=== PATIENT | male | born 1955 | race Caucasian/White ===

== ENCOUNTER 2016-07-07 09:28 | Inpatient (IN) | payer OTHER ==
[2016-07-04 14:30] VITALS: BMI 24.3
[2016-07-07 10:10] LABS: INR 1.35 (0.82-1.09); PROTHROMBIN TIME (PATIENT) 14.9 SEC (9.98-11.88)
[2016-07-07] MEDS ORDERED: ACETAMINOPHEN 325 MG TABLET (FP) ONE (15:27)
[2016-07-07] MEDS ORDERED: oxyCODONE HCL 5 MG TABLET ONE (15:27)
[2016-07-07] MEDS ORDERED: VANCOMYCIN 1,000 MG in DEXTROSE 5%-WATER - 250 ML IVPB SCH (16:00)
[2016-07-07] MEDS ORDERED: AMPICILLIN NA/SULBACTAM NA 100 ML IVPB ONE (16:15)
[2016-07-07] MEDS ORDERED: VANCOMYCIN 1 GRAM (PRE-DOCKED) 250 ML IVPB ONE (16:30)
[2016-07-07] MEDS: morphine CARPU-JECT 4 MG/1 ML DISP.SYRIN IVPUSH PRN (17:12)
[2016-07-07 17:19] LABS: BASOPHIL 0.5 % (0-2.0); EOSINOPHIL 0.4 % (0-4.5); MCHC 34.1 g/dl (32.0-35.9); MEAN PLT VOLUME 7.6 fl (7.5-11.1); NEUTROPHILS 60.7 % (42.8-82.8); PLATELET COUNT 259 K/MM3 (134-434); RDW 13.1 % (11.9-15.9); WHITE BLOOD COUNT 6.2 K/mm3 (4.0-10.0)
[2016-07-07 17:46] LABS: ALBUMIN 2.5 g/dl (3.4-5.0); ALK PHOS 134 U/L (45-117); ANION GAP 7 (8-16); BILIRUBIN,TOTAL 0.5 mg/dL (0.2-1.0); CALCIUM 7.7 mg/dL (8.5-10.1); CO2 26 mmol/L (21-32); CREATININE 1.1 mg/dL (0.7-1.3); GLUCOSE,RANDOM 112 mg/dL (74-106); SGOT/AST 15 U/L (15-37); SGPT/ALT 18 U/L (12-78)
--- NOTE | 2016-07-07 18:14 | CONSULT ---
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 the patient feels good and has mostly bloody drainage noted no drugs lives with family - History Source History Provided By: Patient, Family Member, Medical Record Limitations to Obtaining History: Poor Historian - Past Medical History Cardio/Vascular: Yes: CAD (s/p PCI 2 years ago), HTN, Hyperlipdemia Pulmonary: Yes: COPD - Alcohol/Substance Use Hx Alcohol Use: Yes (OCCASIONAL) - Smoking History Smoking history: Current every day smoker Have you smoked in the past 12 months: Yes Aproximately how many cigarettes per day: 6 - Social History Usual Living Arrangement: With Spouse ADL: Independent History of Recent Travel: No Home Medications - Allergies Allergies/Adverse Reactions: Allergies Allergy/AdvReac Type Severity Reaction Status Date / Time No Known Allergies Allergy Verified 07/04/16 14:30 - Home Medications Home Medications: Ambulatory Orders Acetaminophen [Tylenol .Regular Strength -] 650 mg PO Q4H PRN #0 tablet Aspirin [ASA -] 81 mg PO HS #0 09/14/15 Atorvastatin Ca [Lipitor] 40 mg PO HS #0 09/14/15 Clopidogrel Bisulfate [Plavix -] 75 mg PO HS #0 09/14/15 Olmesartan/Hydrochlorothiazide [Benicar Hct 20-12.5 mg Tablet] 1 each PO HS #0 09/14/15 Review of Systems - Review of Systems Constitutional: reports: No Symptoms Eyes: reports: No Symptoms HENT: reports: No Symptoms Neck: reports: No Symptoms Cardiovascular: reports: No Symptoms Respiratory: reports: No Symptoms Gastrointestinal: reports: No Symptoms Genitourinary: reports: No Symptoms Musculoskeletal: reports: Back Pain Integumentary: reports: No Symptoms Neurological: reports: No Symptoms Endocrine: reports: No Symptoms Hematology/Lymphatic: reports: No Symptoms Physical Exam Vital Signs: Vital Signs Temperature 97.5 F L 01/23/17 10:29 Pulse Rate 100 H 07/07/16 15:35 Respiratory Rate 18 07/07/16 15:35 Blood Pressure 102/54 07/07/16 15:35 O2 Sat by Pulse Oximetry (%) 97 07/07/16 16:59 Constitutional: Yes: Well Nourished, No Distress, Calm Eyes: Yes: Conjunctiva Clear HENT: Yes: Atraumatic, Normocephalic Neck: Yes: Supple, Trachea Midline Cardiovascular: Yes: Regular Rate and Rhythm Respiratory: Yes: Regular, CTA Bilaterally Gastrointestinal: Yes: Normal Bowel Sounds, Soft Musculoskeletal: Yes: Other Extremities: Yes: WNL Wound/Incision: Yes: Clean/Dry, Other (drainage tube present) Neurological: Yes: Alert, Oriented Labs: CBC, BMP 07/07/16 16:40 07/07/16 16:40 Assessment/Plan retroperitoneal abscess s/p drainage hld htn smoker Problems (1) Retroperitoneal abscess Code(s): K68.19 - OTHER RETROPERITONEAL ABSCESS (2) Hyperlipidemia Code(s): E78.5 - HYPERLIPIDEMIA, UNSPECIFIED (3) Hypertension Code(s): I10 - ESSENTIAL (PRIMARY) HYPERTENSION plan will start patient on abx await for cx and micro report
[2016-07-07] MEDS: DEXTROSE 5%-0.45% SALINE 1,000 ML IV SCH (18:27)
[2016-07-07] MEDS: PIPERACILLIN/TAZOB 3.375 GM 50 ML IVPB SCH (18:56)
[2016-07-07] MEDS ORDERED: AMPICILLIN NA/SULBACTAM NA 3 GM in SODIUM CHLORIDE 100 ML IVPB SCH (21:00)
[2016-07-07] MEDS: ATORVASTATIN CA 40 MG TABLET (FP) PO SCH (21:39)
[2016-07-07] MEDS: CLOPIDOGREL BISULFATE 75 MG TABLET (FP) PO SCH (21:39)
--- NOTE | 2016-07-07 21:39 | HP ---
Admitting History and Physical - Past Medical History Cardiovascular: Yes: CAD (s/p PCI 2 years ago), HTN, Hyperlipdemia Pulmonary: Yes: COPD - Smoking History Smoking history: Current every day smoker Have you smoked in the past 12 months: Yes Aproximately how many cigarettes per day: 6 - Alcohol/Substance Use Hx Alcohol Use: Yes (OCCASIONAL) - Social History ADL: Independent History of Recent Travel: No Home Medications - Allergies Allergies/Adverse Reactions: Allergies Allergy/AdvReac Type Severity Reaction Status Date / Time No Known Allergies Allergy Verified 07/04/16 14:30 - Home Medications Home Medications: Ambulatory Orders Acetaminophen [Tylenol .Regular Strength -] 650 mg PO Q4H PRN #0 tablet Aspirin [ASA -] 81 mg PO HS #0 09/14/15 Atorvastatin Ca [Lipitor] 40 mg PO HS #0 09/14/15 Clopidogrel Bisulfate [Plavix -] 75 mg PO HS #0 09/14/15 Olmesartan/Hydrochlorothiazide [Benicar Hct 20-12.5 mg Tablet] 1 each PO HS #0 09/14/15 Physical Examination Vital Signs: Vital Signs Temperature 98.4 F 07/07/16 16:20 Pulse Rate 89 07/07/16 16:20 Respiratory Rate 20 07/07/16 16:20 Blood Pressure 143/70 07/07/16 16:20 O2 Sat by Pulse Oximetry (%) 97 07/07/16 16:59 Labs: CBC, BMP 07/07/16 16:40 07/07/16 16:40
[2016-07-07] MEDS ORDERED: ASPIRIN 81 MG CHEWABLE TABLETS PO SCH (22:00)
[2016-07-07] MEDS ORDERED: PATIENT'S OWN MEDICATION (NON-FORMULARY) (Olmesartan/Hydrochlorothiazide [Benicar Hct 20-1 PO SCH (22:00)
[2016-07-08] MEDS: morphine CARPU-JECT 4 MG/1 ML DISP.SYRIN IVPUSH PRN ×2 (00:21→06:54)
[2016-07-08] MEDS: PIPERACILLIN/TAZOB 3.375 GM 50 ML IVPB SCH ×3 (02:33→17:47)
[2016-07-08] MEDS ORDERED: VANCOMYCIN 1 GRAM (PRE-DOCKED) 250 ML IVPB SCH (05:00)
[2016-07-08] MEDS: ACETAMINOPHEN 325 MG TABLET (FP) PO PRN ×2 (06:55→14:53)
[2016-07-08] MEDS: HYDROCHLOROTHIAZIDE 12.5 MG CAPSULE (FP) PO SCH (09:35)
[2016-07-08] MEDS: VALSARTAN 160 MG TABLET (UD) PO SCH (09:35)
[2016-07-08] MEDS: VANCOMYCIN 1 GRAM (PRE-DOCKED) 250 ML IVPB SCH (09:35)
[2016-07-08] MEDS: DEXTROSE 5%-0.45% SALINE 1,000 ML IV SCH ×2 (10:56→17:45)
--- NOTE | 2016-07-08 13:13 | PN ---
Progress Note, Physician History of Present Illness: patient had a spike of fever feels slightly weak no other events stable - Current Medication List Current Medications: Active Medications Acetaminophen (Tylenol -) 650 mg PO Q4H PRN PRN Reason: FEVER OR PAIN Last Admin: 07/08/16 06:55 Dose: 650 mg Aspirin (Asa -) 81 mg PO [facility] Last Admin: 07/07/16 21:39 Dose: 81 mg Atorvastatin Calcium (Lipitor -) 40 mg PO [facility] Last Admin: 07/07/16 21:39 Dose: 40 mg Clopidogrel Bisulfate (Plavix -) 75 mg PO HS [facility] Last Admin: 07/07/16 21:39 Dose: 75 mg Hydrochlorothiazide (Hctz -) 12.5 mg PO DAILY [facility] Last Admin: 07/08/16 09:35 Dose: 12.5 mg Dextrose/Sodium Chloride (D5-1/2ns -) 1,000 mls @ 75 mls/hr IV ASDIR [facility] Last Admin: 07/08/16 10:56 Dose: 75 mls/hr Vancomycin HCl (Vancomycin (Pre-Docked)) 250 mls @ 250 mls/hr IVPB DAILY [facility] Last Admin: 07/08/16 09:35 Dose: 250 mls/hr Piperacillin Sod/Tazobactam Sod (Zosyn 3.375gm Ivpb (Pre-Docked)) 50 mls @ 100 mls/hr IVPB Q8H-IV [facility] Last Admin: 07/08/16 09:35 Dose: 100 mls/hr Morphine Sulfate (Morphine Injection -) 4 mg IVPUSH Q4H PRN PRN Reason: PAIN Last Admin: 07/08/16 06:54 Dose: 4 mg Valsartan (Diovan -) 160 mg PO DAILY [facility] Last Admin: 07/08/16 09:35 Dose: 160 mg - Objective Vital Signs: Vital Signs Temperature 99.2 F 07/08/16 10:00 Pulse Rate 89 07/08/16 10:00 Respiratory Rate 18 07/08/16 10:00 Blood Pressure 116/55 07/08/16 10:00 O2 Sat by Pulse Oximetry (%) 97 07/08/16 09:00 Constitutional: Yes: No Distress, Calm Eyes: Yes: Conjunctiva Clear Cardiovascular: Yes: Regular Rate and Rhythm Respiratory: Yes: Regular, CTA Bilaterally Gastrointestinal: Yes: Normal Bowel Sounds, Soft Musculoskeletal: Yes: Other (drainage tube in place) Extremities: Yes: WNL Neurological: Yes: Alert, Oriented Psychiatric: Yes: Alert Labs: CBC, BMP 07/07/16 16:40 07/07/16 16:40 INR, PTT INR 1.35 (0.82-1.09) H 07/07/16 09:36 Assessment/Plan retroperitoneal abscess s/p drainage hld htn smoker Problems (1) Retroperitoneal abscess Code(s): K68.19 - OTHER RETROPERITONEAL ABSCESS (2) Hyperlipidemia Code(s): E78.5 - HYPERLIPIDEMIA, UNSPECIFIED (3) Hypertension Code(s): I10 - ESSENTIAL (PRIMARY) HYPERTENSION plan ct abx await for micro report if the patient spikes fever again pls send blood for cx d/w the nursing staff
[2016-07-08] MEDS: HEPARIN NA (PORCINE) 5,000 UNITS/ML 1ML VIAL SQ SCH (21:22)
[2016-07-08] MEDS: ATORVASTATIN CA 40 MG TABLET (FP) PO SCH (21:22)
[2016-07-08] MEDS: CLOPIDOGREL BISULFATE 75 MG TABLET (FP) PO SCH (21:22)
[2016-07-09] MEDS: PIPERACILLIN/TAZOB 3.375 GM 50 ML IVPB SCH ×2 (02:40→10:10)
[2016-07-09] MEDS: morphine CARPU-JECT 4 MG/1 ML DISP.SYRIN IVPUSH PRN (02:46)
[2016-07-09] MEDS: TAMSULOSIN HCL 0.4 MG CAP.ER.24H (FP) PO SCH (08:14)
[2016-07-09] MEDS ORDERED: TAMSULOSIN HCL 0.4 MG CAP.ER.24H (FP) PO SCH (08:30)
[2016-07-09 08:39] LABS: BASOPHIL 0.5 % (0-2.0); EOSINOPHIL 0.6 % (0-4.5); MCH 29.5 pg (25.7-33.7); MCHC 34.6 g/dl (32.0-35.9); MEAN CELL VOLUME 85.2 fl (80-96); MEAN PLT VOLUME 7.7 fl (7.5-11.1); NEUTROPHILS 66.5 % (42.8-82.8); PLATELET COUNT 213 K/MM3 (134-434); RDW 13.1 % (11.9-15.9); WHITE BLOOD COUNT 7.6 K/mm3 (4.0-10.0)
[2016-07-09 10:04] LABS: ALBUMIN 2.5 g/dl (3.4-5.0); BILIRUBIN,TOTAL 0.7 mg/dL (0.2-1.0); CALCIUM 8.3 mg/dL (8.5-10.1); CREATININE 1.3 mg/dL (0.7-1.3); TOT PROT 6.2 g/dl (6.4-8.2)
--- NOTE | 2016-07-09 10:04 | CONSULT ---
Consult Consult Specialty:: Surgery Referred by:: Dr. Castañeda Reason for Consultation:: Retroperitoneal abscess - History of Present Illness Chief Complaint: back pain History of Present Illness: 61 y.o. male presents with back pain and CT/MRI findings of left retroperitoneal mass/fluid collection/abscess. Pt is s/p CT guided drainage of retroperitoneal abscess. Currently feels better with less back pain. On Vancomycin and Zosyn for preliminary report of Staph coagulase positive organism. - History Source History Provided By: Patient, Family Member - Past Medical History Cardio/Vascular: Yes: CAD (s/p PCI 2 years ago), HTN, Hyperlipdemia Pulmonary: Yes: COPD - Alcohol/Substance Use Hx Alcohol Use: Yes (OCCASIONAL) - Smoking History Smoking history: Current every day smoker Have you smoked in the past 12 months: Yes Aproximately how many cigarettes per day: 6 - Social History Usual Living Arrangement: With Spouse ADL: Independent History of Recent Travel: No Home Medications - Allergies Allergies/Adverse Reactions: Allergies Allergy/AdvReac Type Severity Reaction Status Date / Time No Known Allergies Allergy Verified 07/04/16 14:30 - Home Medications Home Medications: Ambulatory Orders Acetaminophen [Tylenol .Regular Strength -] 650 mg PO Q4H PRN #0 tablet Aspirin [ASA -] 81 mg PO HS #0 09/14/15 Atorvastatin Ca [Lipitor] 40 mg PO HS #0 09/14/15 Clopidogrel Bisulfate [Plavix -] 75 mg PO HS #0 09/14/15 Olmesartan/Hydrochlorothiazide [Benicar Hct 20-12.5 mg Tablet] 1 each PO HS #0 09/14/15 Physical Exam Vital Signs: Vital Signs Temperature 98.6 F 07/09/16 08:57 Pulse Rate 91 H 07/09/16 08:57 Respiratory Rate 20 07/09/16 08:57 Blood Pressure 109/49 07/09/16 08:57 O2 Sat by Pulse Oximetry (%) 97 07/08/16 21:00 Constitutional: Yes: Well Nourished, No Distress Eyes: Yes: Conjunctiva Clear HENT: Yes: Normocephalic Neck: Yes: Supple Cardiovascular: Yes: Regular Rate and Rhythm Respiratory: Yes: CTA Bilaterally Gastrointestinal: Yes: Soft Musculoskeletal: Yes: Back Pain (decreases), Other (large size pigtail catheter in place at the left lower back lumbar region with neli-purulent fluid/ drainage) Edema: No Labs: CBC, BMP 07/09/16 07:00 Imaging - Results Cat Scan: Image Reviewed MRI: Report Reviewed Problem List - Problems (1) Back pain Assessment/Plan: Continue catheter drainage of retroperitoneal abscess Continue antibiotics, F/U fluid C/S No surgical intervention necessary at this time Catheter removal pending volume of drainage, resolution of abscess by CT scan Please continue catheter care coordination with IR service. Code(s): M54.9 - DORSALGIA, UNSPECIFIED (2) Retroperitoneal abscess Code(s): K68.19 - OTHER RETROPERITONEAL ABSCESS
[2016-07-09] MEDS: ASPIRIN COATED 81 MG TABLET.EC PO SCH (10:10)
[2016-07-09] MEDS: VALSARTAN 160 MG TABLET (UD) PO SCH (10:10)
[2016-07-09] MEDS: HYDROCHLOROTHIAZIDE 12.5 MG CAPSULE (FP) PO SCH (10:10)
[2016-07-09] MEDS: HEPARIN NA (PORCINE) 5,000 UNITS/ML 1ML VIAL SQ SCH ×2 (10:10→22:02)
[2016-07-09] MEDS: VANCOMYCIN 1 GRAM (PRE-DOCKED) 250 ML IVPB SCH (10:49)
--- NOTE | 2016-07-09 15:27 | PN ---
Progress Note, Physician History of Present Illness: patient stable afebrile still draining - Current Medication List Current Medications: Active Medications Acetaminophen (Tylenol -) 650 mg PO Q4H PRN PRN Reason: FEVER OR PAIN Last Admin: 07/08/16 14:53 Dose: 650 mg Aspirin (Ecotrin -) 81 mg PO DAILY [facility] Last Admin: 07/09/16 10:10 Dose: 81 mg Atorvastatin Calcium (Lipitor -) 40 mg PO HS [facility] Last Admin: 07/08/16 21:22 Dose: 40 mg Clopidogrel Bisulfate (Plavix -) 75 mg PO HS [facility] Last Admin: 07/08/16 21:22 Dose: 75 mg Heparin Sodium (Porcine) (Heparin -) 5,000 unit SQ BID [facility] Last Admin: 07/09/16 10:10 Dose: 5,000 unit Hydrochlorothiazide (Hctz -) 12.5 mg PO DAILY [facility] Last Admin: 07/09/16 10:10 Dose: 12.5 mg Vancomycin HCl (Vancomycin (Pre-Docked)) 250 mls @ 250 mls/hr IVPB DAILY [facility] Last Admin: 07/09/16 10:49 Dose: 250 mls/hr Piperacillin Sod/Tazobactam Sod (Zosyn 3.375gm Ivpb (Pre-Docked)) 50 mls @ 100 mls/hr IVPB Q8H-IV [facility] Last Admin: 07/09/16 10:10 Dose: 100 mls/hr Morphine Sulfate (Morphine Injection -) 4 mg IVPUSH Q4H PRN PRN Reason: PAIN Last Admin: 07/09/16 02:46 Dose: 4 mg Tamsulosin HCl (Flomax -) 0.8 mg PO DAILY@0830 [facility] Last Admin: 07/09/16 08:14 Dose: 0.8 mg Valsartan (Diovan -) 160 mg PO DAILY [facility] Last Admin: 07/09/16 10:10 Dose: 160 mg - Objective Vital Signs: Vital Signs Temperature 99.1 F 07/09/16 15:09 Pulse Rate 88 07/09/16 15:09 Respiratory Rate 18 07/09/16 15:09 Blood Pressure 100/53 07/09/16 15:09 O2 Sat by Pulse Oximetry (%) 97 07/08/16 21:00 Constitutional: Yes: No Distress, Calm Neck: Yes: Supple Cardiovascular: Yes: Regular Rate and Rhythm Respiratory: Yes: Regular, CTA Bilaterally Gastrointestinal: Yes: Normal Bowel Sounds, Soft Musculoskeletal: Yes: WNL, Other (draiange tube in place posteriorly left side) Extremities: Yes: WNL Wound/Incision: Yes: Clean/Dry Neurological: Yes: Alert, Oriented Psychiatric: Yes: Alert Labs: CBC, BMP 07/09/16 07:00 07/09/16 07:00 INR, PTT INR 1.35 (0.82-1.09) H 07/07/16 09:36 Assessment/Plan retroperitoneal abscess s/p drainage hld htn smoker plan micro report noted stopped zosyn continue vanco await identification and sensitivities patient will need 3-4 weeks of iv abx
[2016-07-09] MEDS: CLOPIDOGREL BISULFATE 75 MG TABLET (FP) PO SCH (22:02)
[2016-07-09] MEDS: ATORVASTATIN CA 40 MG TABLET (FP) PO SCH (22:02)
--- NOTE | 2016-07-09 23:09 | PN ---
Progress Note, Physician History of Present Illness: Pt seen and examined on 07/08/16 however note was not saved - Current Medication List Current Medications: Active Medications Acetaminophen (Tylenol -) 650 mg PO Q4H PRN PRN Reason: FEVER OR PAIN Last Admin: 07/08/16 14:53 Dose: 650 mg Aspirin (Ecotrin -) 81 mg PO DAILY [facility] Last Admin: 07/09/16 10:10 Dose: 81 mg Atorvastatin Calcium (Lipitor -) 40 mg PO HS [facility] Last Admin: 07/09/16 22:02 Dose: 40 mg Clopidogrel Bisulfate (Plavix -) 75 mg PO HS [facility] Last Admin: 07/09/16 22:02 Dose: 75 mg Heparin Sodium (Porcine) (Heparin -) 5,000 unit SQ BID [facility] Last Admin: 07/09/16 22:02 Dose: 5,000 unit Hydrochlorothiazide (Hctz -) 12.5 mg PO DAILY [facility] Last Admin: 07/09/16 10:10 Dose: 12.5 mg Vancomycin HCl (Vancomycin (Pre-Docked)) 250 mls @ 250 mls/hr IVPB DAILY [facility] Last Admin: 07/09/16 10:49 Dose: 250 mls/hr Morphine Sulfate (Morphine Injection -) 4 mg IVPUSH Q4H PRN PRN Reason: PAIN Last Admin: 07/09/16 02:46 Dose: 4 mg Tamsulosin HCl (Flomax -) 0.8 mg PO DAILY@0830 [facility] Last Admin: 07/09/16 08:14 Dose: 0.8 mg Valsartan (Diovan -) 160 mg PO DAILY [facility] Last Admin: 07/09/16 10:10 Dose: 160 mg - Objective Vital Signs: Vital Signs Temperature 98.8 F 07/09/16 16:30 Pulse Rate 85 07/09/16 16:30 Respiratory Rate 20 07/09/16 16:30 Blood Pressure 122/61 07/09/16 16:30 O2 Sat by Pulse Oximetry (%) 96 07/09/16 09:00 Cardiovascular: Yes: WNL, Regular Rate and Rhythm Respiratory: Yes: WNL, Regular, CTA Bilaterally Gastrointestinal: Yes: WNL, Normal Bowel Sounds, Soft, Other ((+) drainage cath LT flank) Labs: CBC, BMP 07/09/16 07:00 07/09/16 07:00 INR, PTT INR 1.35 (0.82-1.09) H 07/07/16 09:36 Problem List - Problems (1) Retroperitoneal abscess Code(s): K68.19 - OTHER RETROPERITONEAL ABSCESS (2) Hyperlipidemia Code(s): E78.5 - HYPERLIPIDEMIA, UNSPECIFIED (3) Hypertension Code(s): I10 - ESSENTIAL (PRIMARY) HYPERTENSION
--- NOTE | 2016-07-09 23:09 | PN ---
Progress Note, Physician History of Present Illness: Still w/ drainage Pt also c/o pain to lt thigh - Current Medication List Current Medications: Active Medications Acetaminophen (Tylenol -) 650 mg PO Q4H PRN PRN Reason: FEVER OR PAIN Last Admin: 07/08/16 14:53 Dose: 650 mg Aspirin (Ecotrin -) 81 mg PO DAILY [facility] Last Admin: 07/09/16 10:10 Dose: 81 mg Atorvastatin Calcium (Lipitor -) 40 mg PO HS [facility] Last Admin: 07/09/16 22:02 Dose: 40 mg Clopidogrel Bisulfate (Plavix -) 75 mg PO HS [facility] Last Admin: 07/09/16 22:02 Dose: 75 mg Heparin Sodium (Porcine) (Heparin -) 5,000 unit SQ BID [facility] Last Admin: 07/09/16 22:02 Dose: 5,000 unit Hydrochlorothiazide (Hctz -) 12.5 mg PO DAILY [facility] Last Admin: 07/09/16 10:10 Dose: 12.5 mg Vancomycin HCl (Vancomycin (Pre-Docked)) 250 mls @ 250 mls/hr IVPB DAILY [facility] Last Admin: 07/09/16 10:49 Dose: 250 mls/hr Morphine Sulfate (Morphine Injection -) 4 mg IVPUSH Q4H PRN PRN Reason: PAIN Last Admin: 07/09/16 02:46 Dose: 4 mg Tamsulosin HCl (Flomax -) 0.8 mg PO DAILY@0830 [facility] Last Admin: 07/09/16 08:14 Dose: 0.8 mg Valsartan (Diovan -) 160 mg PO DAILY [facility] Last Admin: 07/09/16 10:10 Dose: 160 mg - Objective Vital Signs: Vital Signs Temperature 98.8 F 07/09/16 16:30 Pulse Rate 85 07/09/16 16:30 Respiratory Rate 20 07/09/16 16:30 Blood Pressure 122/61 07/09/16 16:30 O2 Sat by Pulse Oximetry (%) 96 07/09/16 09:00 Constitutional: Yes: Well Nourished Cardiovascular: Yes: WNL, Regular Rate and Rhythm Respiratory: Yes: WNL, Regular, CTA Bilaterally Gastrointestinal: Yes: WNL, Normal Bowel Sounds, Soft, Other ((+) sanguinous drainage cath lt flank) Labs: CBC, BMP 07/09/16 07:00 07/09/16 07:00 INR, PTT INR 1.35 (0.82-1.09) H 07/07/16 09:36 Problem List - Problems (1) Retroperitoneal abscess Assessment/Plan: Still drainage Fluid grew staph coag pos Cont IV vanco Cont to monitor cultures As per ID Code(s): K68.19 - OTHER RETROPERITONEAL ABSCESS (2) Hypertension Assessment/Plan: BP stable Cont diovan/hctz/asa Code(s): I10 - ESSENTIAL (PRIMARY) HYPERTENSION (3) Hyperlipidemia Assessment/Plan: Cont lipitor Code(s): E78.5 - HYPERLIPIDEMIA, UNSPECIFIED
[2016-07-10 08:19] LABS: BASOPHIL 0.5 % (0-2.0); MCH 29.4 pg (25.7-33.7); MCHC 34.8 g/dl (32.0-35.9); MEAN CELL VOLUME 84.4 fl (80-96); MEAN PLT VOLUME 7.6 fl (7.5-11.1); NEUTROPHILS 67.4 % (42.8-82.8); PLATELET COUNT 220 K/MM3 (134-434); WHITE BLOOD COUNT 5.8 K/mm3 (4.0-10.0)
[2016-07-10] MEDS: TAMSULOSIN HCL 0.4 MG CAP.ER.24H (FP) PO SCH (08:30)
[2016-07-10 09:11] LABS: ALBUMIN 2.5 g/dl (3.4-5.0); BILIRUBIN,TOTAL 0.6 mg/dL (0.2-1.0); CALCIUM 8.6 mg/dL (8.5-10.1); CREATININE 1.3 mg/dL (0.7-1.3); TOT PROT 6.4 g/dl (6.4-8.2)
[2016-07-10] MEDS: HYDROCHLOROTHIAZIDE 12.5 MG CAPSULE (FP) PO SCH (09:59)
[2016-07-10] MEDS: HEPARIN NA (PORCINE) 5,000 UNITS/ML 1ML VIAL SQ SCH ×2 (09:59→21:41)
[2016-07-10] MEDS: ASPIRIN COATED 81 MG TABLET.EC PO SCH (09:59)
[2016-07-10] MEDS: VALSARTAN 160 MG TABLET (UD) PO SCH (09:59)
[2016-07-10] MEDS: VANCOMYCIN 1 GRAM (PRE-DOCKED) 250 ML IVPB SCH (10:00)
--- NOTE | 2016-07-10 13:24 | PN ---
Progress Note, Physician History of Present Illness: patient doing well no new events spoke with the patient in detail about the plan of treatment - Current Medication List Current Medications: Active Medications Acetaminophen (Tylenol -) 650 mg PO Q4H PRN PRN Reason: FEVER OR PAIN Last Admin: 07/08/16 14:53 Dose: 650 mg Aspirin (Ecotrin -) 81 mg PO DAILY [facility] Last Admin: 07/10/16 09:59 Dose: 81 mg Atorvastatin Calcium (Lipitor -) 40 mg PO HS [facility] Last Admin: 07/09/16 22:02 Dose: 40 mg Clopidogrel Bisulfate (Plavix -) 75 mg PO HS [facility] Last Admin: 07/09/16 22:02 Dose: 75 mg Heparin Sodium (Porcine) (Heparin -) 5,000 unit SQ BID [facility] Last Admin: 07/10/16 09:59 Dose: 5,000 unit Hydrochlorothiazide (Hctz -) 12.5 mg PO DAILY [facility] Last Admin: 07/10/16 09:59 Dose: 12.5 mg Cefazolin Sodium 1 gm/ (Dextrose) 50 mls @ 100 mls/hr IVPB Q8H-IV [facility] Morphine Sulfate (Morphine Injection -) 4 mg IVPUSH Q4H PRN PRN Reason: PAIN Last Admin: 07/09/16 02:46 Dose: 4 mg Tamsulosin HCl (Flomax -) 0.8 mg PO DAILY@0830 [facility] Last Admin: 07/10/16 08:30 Dose: 0.8 mg Valsartan (Diovan -) 160 mg PO DAILY [facility] Last Admin: 07/10/16 09:59 Dose: 160 mg - Objective Vital Signs: Vital Signs Temperature 98.3 F 07/10/16 10:00 Pulse Rate 83 07/10/16 10:00 Respiratory Rate 20 07/10/16 10:00 Blood Pressure 114/64 07/10/16 10:00 O2 Sat by Pulse Oximetry (%) 97 07/10/16 09:00 Constitutional: Yes: No Distress, Calm Cardiovascular: Yes: Regular Rate and Rhythm Respiratory: Yes: Regular, CTA Bilaterally Gastrointestinal: Yes: Normal Bowel Sounds, Soft Musculoskeletal: Yes: Other Extremities: Yes: Other Wound/Incision: Yes: Other (drainage tube in place) Neurological: Yes: Alert, Oriented Psychiatric: Yes: Alert Labs: CBC, BMP 07/10/16 06:15 07/10/16 06:15 INR, PTT INR 1.35 (0.82-1.09) H 07/07/16 09:36 Assessment/Plan retroperitoneal abscess s/p drainage hld htn smoker plan cx report noted vanco stopped started patient on cefazolin patient will need for couple of weeks then he will need repeat mri
[2016-07-10] MEDS ORDERED: CEFAZOLIN (PRE-DOCKED) 50 ML IVPB SCH (13:30)
[2016-07-10] MEDS: CEFAZOLIN 1 GM/D5W 50 ML IVPB SCH (17:31)
[2016-07-10] MEDS: CLOPIDOGREL BISULFATE 75 MG TABLET (FP) PO SCH (21:40)
[2016-07-10] MEDS: ATORVASTATIN CA 40 MG TABLET (FP) PO SCH (21:40)
--- NOTE | 2016-07-10 23:11 | PN ---
Progress Note, Physician History of Present Illness: Still w/ drainage No further pain to lt thigh - Current Medication List Current Medications: Active Medications Acetaminophen (Tylenol -) 650 mg PO Q4H PRN PRN Reason: FEVER OR PAIN Last Admin: 07/08/16 14:53 Dose: 650 mg Aspirin (Ecotrin -) 81 mg PO DAILY [facility] Last Admin: 07/10/16 09:59 Dose: 81 mg Atorvastatin Calcium (Lipitor -) 40 mg PO HS [facility] Last Admin: 07/10/16 21:40 Dose: 40 mg Clopidogrel Bisulfate (Plavix -) 75 mg PO HS [facility] Last Admin: 07/10/16 21:40 Dose: 75 mg Heparin Sodium (Porcine) (Heparin -) 5,000 unit SQ BID [facility] Last Admin: 07/10/16 21:41 Dose: 5,000 unit Hydrochlorothiazide (Hctz -) 12.5 mg PO DAILY [facility] Last Admin: 07/10/16 09:59 Dose: 12.5 mg Cefazolin Sodium (Ancef 1 Gm Premixed Ivpb -) 50 mls @ 100 mls/hr IVPB Q8H-IV [facility] Last Admin: 07/10/16 17:31 Dose: 100 mls/hr Morphine Sulfate (Morphine Injection -) 4 mg IVPUSH Q4H PRN PRN Reason: PAIN Last Admin: 07/09/16 02:46 Dose: 4 mg Tamsulosin HCl (Flomax -) 0.8 mg PO DAILY@0830 [facility] Last Admin: 07/10/16 08:30 Dose: 0.8 mg Valsartan (Diovan -) 160 mg PO DAILY [facility] Last Admin: 07/10/16 09:59 Dose: 160 mg - Objective Vital Signs: Vital Signs Temperature 98 F 07/10/16 16:20 Pulse Rate 87 07/10/16 16:20 Respiratory Rate 20 07/10/16 16:20 Blood Pressure 123/60 07/10/16 16:20 O2 Sat by Pulse Oximetry (%) 97 07/10/16 09:00 Constitutional: Yes: No Distress Neck: Yes: Supple Cardiovascular: Yes: WNL, Regular Rate and Rhythm Respiratory: Yes: WNL, Regular, CTA Bilaterally Gastrointestinal: Yes: WNL, Normal Bowel Sounds, Soft, Other ((+) cath w/ sangrinous drainage on lt flank) Labs: CBC, BMP 07/10/16 06:15 01/26/17 06:15 INR, PTT INR 1.35 (0.82-1.09) H 07/07/16 09:36 Problem List - Problems (1) Retroperitoneal abscess Assessment/Plan: Still drainage Fluid grew staph coag pos Antibx changed to IV cefazolin Will need PIC line and drainage tube removed prior to dc Code(s): K68.19 - OTHER RETROPERITONEAL ABSCESS (2) Hypertension Assessment/Plan: BP stable Cont diovan/hctz/asa Code(s): I10 - ESSENTIAL (PRIMARY) HYPERTENSION (3) Hyperlipidemia Assessment/Plan: Cont lipitor Code(s): E78.5 - HYPERLIPIDEMIA, UNSPECIFIED
[2016-07-11] MEDS: CEFAZOLIN 1 GM/D5W 50 ML IVPB SCH ×3 (01:28→17:14)
[2016-07-11] MEDS: VALSARTAN 160 MG TABLET (UD) PO SCH (09:26)
[2016-07-11] MEDS: HYDROCHLOROTHIAZIDE 12.5 MG CAPSULE (FP) PO SCH (09:26)
[2016-07-11] MEDS: TAMSULOSIN HCL 0.4 MG CAP.ER.24H (FP) PO SCH (09:32)
[2016-07-11] MEDS: ASPIRIN COATED 81 MG TABLET.EC PO SCH (09:32)
[2016-07-11] MEDS: HEPARIN NA (PORCINE) 5,000 UNITS/ML 1ML VIAL SQ SCH ×2 (09:32→21:52)
--- NOTE | 2016-07-11 13:44 | PN ---
Progress Note, Physician History of Present Illness: patient doing well no other issues feeling much better - Current Medication List Current Medications: Active Medications Acetaminophen (Tylenol -) 650 mg PO Q4H PRN PRN Reason: FEVER OR PAIN Last Admin: 07/08/16 14:53 Dose: 650 mg Aspirin (Ecotrin -) 81 mg PO DAILY [facility] Last Admin: 07/11/16 09:32 Dose: 81 mg Atorvastatin Calcium (Lipitor -) 40 mg PO HS [facility] Last Admin: 07/10/16 21:40 Dose: 40 mg Clopidogrel Bisulfate (Plavix -) 75 mg PO HS [facility] Last Admin: 07/10/16 21:40 Dose: 75 mg Heparin Sodium (Porcine) (Heparin -) 5,000 unit SQ BID [facility] Last Admin: 07/11/16 09:32 Dose: 5,000 unit Hydrochlorothiazide (Hctz -) 12.5 mg PO DAILY [facility] Last Admin: 07/11/16 09:26 Dose: Not Given Cefazolin Sodium (Ancef 1 Gm Premixed Ivpb -) 50 mls @ 100 mls/hr IVPB Q8H-IV [facility] Last Admin: 07/11/16 09:32 Dose: 100 mls/hr Morphine Sulfate (Morphine Injection -) 4 mg IVPUSH Q4H PRN PRN Reason: PAIN Last Admin: 07/09/16 02:46 Dose: 4 mg Tamsulosin HCl (Flomax -) 0.8 mg PO DAILY@0830 [facility] Last Admin: 07/11/16 09:32 Dose: 0.8 mg Valsartan (Diovan -) 160 mg PO DAILY [facility] Last Admin: 07/11/16 09:26 Dose: Not Given - Objective Vital Signs: Vital Signs Temperature 98.4 F 07/11/16 10:00 Pulse Rate 100 H 07/11/16 10:00 Respiratory Rate 20 07/11/16 10:00 Blood Pressure 98/55 07/11/16 10:00 O2 Sat by Pulse Oximetry (%) 96 07/11/16 09:00 Constitutional: Yes: No Distress, Calm Neck: Yes: Supple Cardiovascular: Yes: Regular Rate and Rhythm Respiratory: Yes: Regular, CTA Bilaterally Gastrointestinal: Yes: Normal Bowel Sounds, Soft Musculoskeletal: Yes: WNL, Other (drainage tube in place) Extremities: Yes: WNL Integumentary: Yes: WNL Neurological: Yes: Alert, Oriented Psychiatric: Yes: Alert Labs: CBC, BMP 07/10/16 06:15 07/10/16 06:15 INR, PTT INR 1.35 (0.82-1.09) H 07/07/16 09:36 Assessment/Plan retroperitoneal abscess s/p drainage hld htn smoker Problems (1) Retroperitoneal abscess Code(s): K68.19 - OTHER RETROPERITONEAL ABSCESS (2) Hyperlipidemia Code(s): E78.5 - HYPERLIPIDEMIA, UNSPECIFIED (3) Hypertension Code(s): I10 - ESSENTIAL (PRIMARY) HYPERTENSION plan continue cefazolin will need for few weeks
[2016-07-11] MEDS: CLOPIDOGREL BISULFATE 75 MG TABLET (FP) PO SCH (21:52)
[2016-07-11] MEDS: ATORVASTATIN CA 40 MG TABLET (FP) PO SCH (21:52)
--- NOTE | 2016-07-11 22:33 | PN ---
Progress Note, Physician History of Present Illness: no new complaints - Current Medication List Current Medications: Active Medications Acetaminophen (Tylenol -) 650 mg PO Q4H PRN PRN Reason: FEVER OR PAIN Last Admin: 07/08/16 14:53 Dose: 650 mg Aspirin (Ecotrin -) 81 mg PO DAILY [facility] Last Admin: 07/11/16 09:32 Dose: 81 mg Atorvastatin Calcium (Lipitor -) 40 mg PO HS [facility] Last Admin: 07/11/16 21:52 Dose: 40 mg Clopidogrel Bisulfate (Plavix -) 75 mg PO HS [facility] Last Admin: 07/11/16 21:52 Dose: 75 mg Heparin Sodium (Porcine) (Heparin -) 5,000 unit SQ BID [facility] Last Admin: 07/11/16 21:52 Dose: 5,000 unit Hydrochlorothiazide (Hctz -) 12.5 mg PO DAILY [facility] Last Admin: 07/11/16 09:26 Dose: Not Given Cefazolin Sodium (Ancef 1 Gm Premixed Ivpb -) 50 mls @ 100 mls/hr IVPB Q8H-IV [facility] Last Admin: 07/11/16 17:14 Dose: 100 mls/hr Morphine Sulfate (Morphine Injection -) 4 mg IVPUSH Q4H PRN PRN Reason: PAIN Last Admin: 07/09/16 02:46 Dose: 4 mg Tamsulosin HCl (Flomax -) 0.8 mg PO DAILY@0830 [facility] Last Admin: 07/11/16 09:32 Dose: 0.8 mg Valsartan (Diovan -) 160 mg PO DAILY [facility] Last Admin: 07/11/16 09:26 Dose: Not Given - Objective Vital Signs: Vital Signs Temperature 98.2 F 07/11/16 17:40 Pulse Rate 88 07/11/16 17:40 Respiratory Rate 18 07/11/16 17:40 Blood Pressure 130/69 07/11/16 17:40 O2 Sat by Pulse Oximetry (%) 96 07/11/16 09:00 Cardiovascular: Yes: WNL, Regular Rate and Rhythm Respiratory: Yes: WNL, CTA Bilaterally Gastrointestinal: Yes: WNL, Normal Bowel Sounds, Soft Labs: CBC, BMP 07/10/16 06:15 07/10/16 06:15 INR, PTT INR 1.35 (0.82-1.09) H 01/23/17 09:36 Problem List - Problems (1) Retroperitoneal abscess Code(s): K68.19 - OTHER RETROPERITONEAL ABSCESS (2) Hypertension Code(s): I10 - ESSENTIAL (PRIMARY) HYPERTENSION (3) Hyperlipidemia Code(s): E78.5 - HYPERLIPIDEMIA, UNSPECIFIED
[2016-07-12] MEDS: CEFAZOLIN 1 GM/D5W 50 ML IVPB SCH ×3 (03:14→17:14)
[2016-07-12] MEDS: VALSARTAN 160 MG TABLET (UD) PO SCH (09:53)
[2016-07-12] MEDS: TAMSULOSIN HCL 0.4 MG CAP.ER.24H (FP) PO SCH (09:53)
[2016-07-12] MEDS: ASPIRIN COATED 81 MG TABLET.EC PO SCH (09:53)
[2016-07-12] MEDS: HEPARIN NA (PORCINE) 5,000 UNITS/ML 1ML VIAL SQ SCH ×2 (09:54→21:08)
[2016-07-12] MEDS: HYDROCHLOROTHIAZIDE 12.5 MG CAPSULE (FP) PO SCH (09:54)
[2016-07-12 12:40] LABS: BASOPHIL 0.8 % (0-2.0); EOSINOPHIL 1.2 % (0-4.5); MCH 29.2 pg (25.7-33.7); MCHC 34.3 g/dl (32.0-35.9); MEAN PLT VOLUME 7.2 fl (7.5-11.1); NEUTROPHILS 61.9 % (42.8-82.8); PLATELET COUNT 225 K/MM3 (134-434); RDW 13.1 % (11.9-15.9); WHITE BLOOD COUNT 5.6 K/mm3 (4.0-10.0)
[2016-07-12 13:20] LABS: ALBUMIN 2.8 g/dl (3.4-5.0); BILIRUBIN,TOTAL 0.3 mg/dL (0.2-1.0); CALCIUM 8.9 mg/dL (8.5-10.1); CREATININE 1.3 mg/dL (0.7-1.3)
--- NOTE | 2016-07-12 15:14 | PN ---
Progress Note, Physician History of Present Illness: patient doing well no other issues feeling much better - Current Medication List Current Medications: Active Medications Acetaminophen (Tylenol -) 650 mg PO Q4H PRN PRN Reason: FEVER OR PAIN Last Admin: 07/08/16 14:53 Dose: 650 mg Aspirin (Ecotrin -) 81 mg PO DAILY [facility] Last Admin: 07/12/16 09:53 Dose: 81 mg Atorvastatin Calcium (Lipitor -) 40 mg PO HS [facility] Last Admin: 07/11/16 21:52 Dose: 40 mg Clopidogrel Bisulfate (Plavix -) 75 mg PO HS [facility] Last Admin: 07/11/16 21:52 Dose: 75 mg Heparin Sodium (Porcine) (Heparin -) 5,000 unit SQ BID [facility] Last Admin: 07/12/16 09:54 Dose: 5,000 unit Hydrochlorothiazide (Hctz -) 12.5 mg PO DAILY [facility] Last Admin: 07/12/16 09:54 Dose: Not Given Cefazolin Sodium (Ancef 1 Gm Premixed Ivpb -) 50 mls @ 100 mls/hr IVPB Q8H-IV [facility] Last Admin: 07/12/16 09:53 Dose: 100 mls/hr Morphine Sulfate (Morphine Injection -) 4 mg IVPUSH Q4H PRN PRN Reason: PAIN Last Admin: 07/09/16 02:46 Dose: 4 mg Tamsulosin HCl (Flomax -) 0.8 mg PO DAILY@0830 [facility] Last Admin: 07/12/16 09:53 Dose: 0.8 mg Valsartan (Diovan -) 160 mg PO DAILY [facility] Last Admin: 07/12/16 09:53 Dose: Not Given - Objective Vital Signs: Vital Signs Temperature 98.3 F 07/12/16 09:41 Pulse Rate 98 H 07/12/16 09:41 Respiratory Rate 18 07/12/16 09:41 Blood Pressure 104/58 07/12/16 09:41 O2 Sat by Pulse Oximetry (%) 98 07/12/16 09:50 Constitutional: Yes: No Distress, Calm Neck: Yes: Supple Cardiovascular: Yes: Regular Rate and Rhythm Respiratory: Yes: Regular, CTA Bilaterally Gastrointestinal: Yes: Normal Bowel Sounds, Soft Musculoskeletal: Yes: WNL Extremities: Yes: WNL Neurological: Yes: Alert, Oriented Psychiatric: Yes: Alert Labs: CBC, BMP 07/12/16 12:30 07/12/16 12:30 INR, PTT INR 1.35 (0.82-1.09) H 07/07/16 09:36 Assessment/Plan retroperitoneal abscess s/p drainage hld htn smoker Problems (1) Retroperitoneal abscess Code(s): K68.19 - OTHER RETROPERITONEAL ABSCESS (2) Hyperlipidemia Code(s): E78.5 - HYPERLIPIDEMIA, UNSPECIFIED (3) Hypertension Code(s): I10 - ESSENTIAL (PRIMARY) HYPERTENSION plan continue cefazolin will need for few weeks
--- NOTE | 2016-07-12 16:03 | PN ---
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 Left back abscess drain output 07/11: 12ml Current Medications Generic Name Dose Route Start Last Admin Trade Name Freq PRN Reason Stop Dose Admin Acetaminophen 650 mg 07/07/16 15:43 07/08/16 14:53 Tylenol - PO 650 mg Q4H PRN Administration FEVER OR PAIN Aspirin 81 mg 07/09/16 10:00 07/12/16 09:53 Ecotrin - PO 81 mg DAILY ED Administration Atorvastatin Calcium 40 mg 07/07/16 22:00 07/11/16 21:52 Lipitor - PO 40 mg HS ED Administration Clopidogrel Bisulfate 75 mg 07/07/16 22:00 07/11/16 21:52 Plavix - PO 75 mg HS ED Administration Heparin Sodium (Porcine) 5,000 unit 07/08/16 22:00 07/12/16 09:54 Heparin - SQ 5,000 unit BID ED Administration Hydrochlorothiazide 12.5 mg 07/08/16 10:00 07/12/16 09:54 Hctz - PO Not Given DAILY ED Cefazolin Sodium 50 mls @ 100 mls/hr 07/10/16 14:16 07/12/16 09:53 Ancef 1 Gm Premixed Ivpb - IVPB 100 mls/hr Q8H-IV ED Administration Morphine Sulfate 4 mg 07/07/16 15:44 07/09/16 02:46 Morphine Injection - IVPUSH 4 mg Q4H PRN Administration PAIN Tamsulosin HCl 0.8 mg 07/09/16 08:30 07/12/16 09:53 Flomax - PO 0.8 mg DAILY@0830 ED Administration Valsartan 160 mg 07/08/16 10:00 07/12/16 09:53 Diovan - PO Not Given DAILY ED Objective: Vital Signs Period Temp Pulse Resp BP Sys/Bernard Pulse Ox Last 24 Hr 98.2 F-98.9 F 85-98 18-20 104-133/58-75 96-98 Physical Exam: CBCD WBC 5.6 K/mm3 (4.0-10.0) 07/12/16 12:30 RBC 4.17 M/mm3 (4.00-5.60) 07/12/16 12:30 Hgb 12.2 GM/dL (11.7-16.9) 07/12/16 12:30 Hct 35.5 % (35.4-49) 07/12/16 12:30 MCV 85.0 fl (80-96) 07/12/16 12:30 MCHC 34.3 g/dl (32.0-35.9) 07/12/16 12:30 RDW 13.1 % (11.9-15.9) 07/12/16 12:30 Plt Count 225 K/MM3 (134-434) 07/12/16 12:30 MPV 7.2 fl (7.5-11.1) L 07/12/16 12:30 CMP Sodium 142 mmol/L (136-145) 07/12/16 12:30 Potassium 3.8 mmol/L (3.5-5.1) 07/12/16 12:30 Chloride 104 mmol/L (98-107) 07/12/16 12:30 Carbon Dioxide 27 mmol/L (21-32) 07/12/16 12:30 Anion Gap 11 (8-16) 07/12/16 12:30 BUN 23 mg/dL (7-18) H D 07/12/16 12:30 Creatinine 1.3 mg/dL (0.7-1.3) 07/12/16 12:30 Creat Clearance w eGFR 56.12 (>60) 07/12/16 12:30 Random Glucose 129 mg/dL (74-106) H D 07/12/16 12:30 Calcium 8.9 mg/dL (8.5-10.1) 07/12/16 12:30 Total Bilirubin 0.3 mg/dL (0.2-1.0) D 07/12/16 12:30 AST 50 U/L (15-37) H D 07/12/16 12:30 ALT 35 U/L (12-78) D 07/12/16 12:30 Alkaline Phosphatase 165 U/L (45-117) H 07/12/16 12:30 Total Protein 7.0 g/dl (6.4-8.2) 07/12/16 12:30 Albumin 2.8 g/dl (3.4-5.0) L 07/12/16 12:30 Microbiology 07/08/16 16:00 Blood - Peripheral Venous Blood Culture - Preliminary NO GROWTH OBTAINED AFTER 72 HOURS, INCUBATION TO CONTINUE FOR 2 DAYS. 07/08/16 16:00 Blood - Peripheral Venous Blood Culture - Preliminary NO GROWTH OBTAINED AFTER 72 HOURS, INCUBATION TO CONTINUE FOR 2 DAYS. 07/07/16 11:50 Abscess Gram Stain - Final 07/07/16 11:50 Abscess Body Fluid Culture - Final Staphylococcus Aureus 07/07/16 11:50 Abscess Anaerobic Culture - Final NO ANAEROBES WERE ISOLATED 07/07/16 11:50 Abscess AFB Smear Concentration - Final 07/07/16 11:50 Abscess Mycobacterial Culture - Preliminary Assessment: This is a 61 year old male with PMHx of CAD s/p stenting x2, HTN, hyperlipidemia, who presented to the ED with a retroperitoneal abscess s/p drainage. 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 - Abscess drain with 12ml output on 07/11, will need CT scan on Thursday to assess size of abscess and discuss with IR removal of drain - Appreciate ID consult 2) Cardiology: CAD s/p stenting x2 - Continue ASA - Continue Plavix HTN - Continue Diovan - Continue Hctz Hyperlipidemia - Continue Lipitor 3) F/E/N: - Monitor electrolytes - Sodium controlled diet 4) Prophylaxis: - B/l lower extremity doppler negative for DVT - PT - Heparin 5,000u sq tid 5) Dispo: - Requires continued inpatient care CODE STATUS: FULL CODE Visit type - Emergency Visit Emergency Visit: Yes ED Registration Date: 07/07/16 Care time: The patient presented to the Emergency Department on the above date and was hospitalized for further evaluation of their emergent condition. - New Patient This patient is new to me today: Yes Date on this admission: 07/12/16 - Critical Care Critical Care patient: No
[2016-07-12] MEDS: CLOPIDOGREL BISULFATE 75 MG TABLET (FP) PO SCH (21:08)
[2016-07-12] MEDS: ATORVASTATIN CA 40 MG TABLET (FP) PO SCH (21:08)
[2016-07-13] MEDS: CEFAZOLIN 1 GM/D5W 50 ML IVPB SCH ×3 (02:03→17:31)
[2016-07-13] MEDS: HEPARIN NA (PORCINE) 5,000 UNITS/ML 1ML VIAL SQ SCH ×4 (06:50→21:58)
[2016-07-13] MEDS ORDERED: PT OWN MED DRAWER 7, Y5N ONE (08:43)
[2016-07-13] MEDS: TAMSULOSIN HCL 0.4 MG CAP.ER.24H (FP) PO SCH (09:13)
[2016-07-13] MEDS: ASPIRIN COATED 81 MG TABLET.EC PO SCH (09:14)
[2016-07-13] MEDS: VALSARTAN 160 MG TABLET (UD) PO SCH (09:14)
[2016-07-13] MEDS: HYDROCHLOROTHIAZIDE 12.5 MG CAPSULE (FP) PO SCH (09:14)
--- NOTE | 2016-07-13 12:40 | PN ---
Progress Note, Physician - Current Medication List Current Medications: Active Medications Acetaminophen (Tylenol -) 650 mg PO Q4H PRN PRN Reason: FEVER OR PAIN Last Admin: 07/08/16 14:53 Dose: 650 mg Aspirin (Ecotrin -) 81 mg PO DAILY [facility] Last Admin: 07/13/16 09:14 Dose: 81 mg Atorvastatin Calcium (Lipitor -) 40 mg PO HS [facility] Last Admin: 07/12/16 21:08 Dose: 40 mg Clopidogrel Bisulfate (Plavix -) 75 mg PO HS [facility] Last Admin: 07/12/16 21:08 Dose: 75 mg Heparin Sodium (Porcine) (Heparin -) 5,000 unit SQ TID [facility] Last Admin: 07/13/16 06:50 Dose: 5,000 unit Hydrochlorothiazide (Hctz -) 12.5 mg PO DAILY [facility] Last Admin: 07/13/16 09:14 Dose: 12.5 mg Cefazolin Sodium (Ancef 1 Gm Premixed Ivpb -) 50 mls @ 100 mls/hr IVPB Q8H-IV [facility] Last Admin: 07/13/16 09:13 Dose: 100 mls/hr Tamsulosin HCl (Flomax -) 0.8 mg PO DAILY@0830 [facility] Last Admin: 07/13/16 09:13 Dose: 0.8 mg Valsartan (Diovan -) 160 mg PO DAILY [facility] Last Admin: 07/13/16 09:14 Dose: 160 mg - Objective Vital Signs: Vital Signs Temperature 98.6 F 07/13/16 08:21 Pulse Rate 101 H 07/13/16 08:21 Respiratory Rate 16 07/13/16 09:00 Blood Pressure 131/61 07/13/16 08:21 O2 Sat by Pulse Oximetry (%) 98 07/13/16 09:00 Cardiovascular: Yes: Regular Rate and Rhythm Respiratory: Yes: Regular, CTA Bilaterally Gastrointestinal: Yes: Normal Bowel Sounds, Soft Wound/Incision: Yes: Other (DRAIN IN PLACE) Labs: CBC, BMP 07/12/16 12:30 07/12/16 12:30 INR, PTT INR 1.35 (0.82-1.09) H 07/07/16 09:36 Problem List - Problems (1) Retroperitoneal abscess Assessment/Plan: Staph aureus retroperitoneal abscess s/p drainage on 07/07 with IR - Continue Cefazolin - Will need PICC line and snf abx - Abscess drain POSSIBLE LEAK will need CT scan to assess size of abscess and discuss with IR removal of drain - Appreciate ID cons Code(s): K68.19 - OTHER RETROPERITONEAL ABSCESS (2) Arteriosclerotic heart disease (ASHD) Assessment/Plan: SAME MEDS Code(s): I25.10 - ATHSCL HEART DISEASE OF [place] CORONARY ARTERY W/O ANG PCTRS (3) Hypertension Assessment/Plan: CONTROLLED Code(s): I10 - ESSENTIAL (PRIMARY) HYPERTENSION (4) Abnormal LFTs Assessment/Plan: MONITOR Code(s): R79.89 - OTHER SPECIFIED ABNORMAL FINDINGS OF BLOOD CHEMISTRY
--- NOTE | 2016-07-13 16:27 | PN ---
Progress Note, Physician History of Present Illness: patient stable no fevers drainage still draining no complaints - Current Medication List Current Medications: Active Medications Acetaminophen (Tylenol -) 650 mg PO Q4H PRN PRN Reason: FEVER OR PAIN Last Admin: 07/08/16 14:53 Dose: 650 mg Aspirin (Ecotrin -) 81 mg PO DAILY [facility] Last Admin: 07/13/16 09:14 Dose: 81 mg Atorvastatin Calcium (Lipitor -) 40 mg PO HS [facility] Last Admin: 07/12/16 21:08 Dose: 40 mg Clopidogrel Bisulfate (Plavix -) 75 mg PO HS [facility] Last Admin: 07/12/16 21:08 Dose: 75 mg Heparin Sodium (Porcine) (Heparin -) 5,000 unit SQ BID [facility] Hydrochlorothiazide (Hctz -) 12.5 mg PO DAILY [facility] Last Admin: 07/13/16 09:14 Dose: 12.5 mg Cefazolin Sodium (Ancef 1 Gm Premixed Ivpb -) 50 mls @ 100 mls/hr IVPB Q8H-IV [facility] Last Admin: 07/13/16 09:13 Dose: 100 mls/hr Tamsulosin HCl (Flomax -) 0.8 mg PO DAILY@0830 [facility] Last Admin: 07/13/16 09:13 Dose: 0.8 mg Valsartan (Diovan -) 160 mg PO DAILY [facility] Last Admin: 07/13/16 09:14 Dose: 160 mg - Objective Vital Signs: Vital Signs Temperature 98.9 F 07/13/16 14:40 Pulse Rate 88 07/13/16 14:40 Respiratory Rate 18 07/13/16 14:40 Blood Pressure 136/70 07/13/16 14:40 O2 Sat by Pulse Oximetry (%) 98 07/13/16 09:00 Constitutional: Yes: No Distress, Calm Neck: Yes: Supple Cardiovascular: Yes: Regular Rate and Rhythm Respiratory: Yes: Regular, CTA Bilaterally Gastrointestinal: Yes: Normal Bowel Sounds, Soft Musculoskeletal: Yes: Other (drainage tube in the lower back) Wound/Incision: Yes: Clean/Dry Neurological: Yes: Alert, Oriented Psychiatric: Yes: Alert Labs: CBC, BMP 07/12/16 12:30 07/12/16 12:30 INR, PTT INR 1.35 (0.82-1.09) H 07/07/16 09:36 Assessment/Plan retroperitoneal abscess s/p drainage hld htn smoker Problems (1) Retroperitoneal abscess Code(s): K68.19 - OTHER RETROPERITONEAL ABSCESS (2) Hyperlipidemia Code(s): E78.5 - HYPERLIPIDEMIA, UNSPECIFIED (3) Hypertension Code(s): I10 - ESSENTIAL (PRIMARY) HYPERTENSION plan continue cefazolin will need for few weeks we should get repeat imaging studies to look at the size of the abscess so we can plan about what to do about the drainage tube and also further plan
[2016-07-13] MEDS: SODIUM CHLORIDE 0.45% 1,000 ML IV SCH (21:52)
[2016-07-13] MEDS: ATORVASTATIN CA 40 MG TABLET (FP) PO SCH (21:53)
[2016-07-13] MEDS: CLOPIDOGREL BISULFATE 75 MG TABLET (FP) PO SCH (21:53)
[2016-07-14] MEDS: CEFAZOLIN 1 GM/D5W 50 ML IVPB SCH ×3 (02:41→17:52)
[2016-07-14 07:58] LABS: BASOPHIL 0.6 % (0-2.0); EOSINOPHIL 1.8 % (0-4.5); MCH 29.4 pg (25.7-33.7); MCHC 34.8 g/dl (32.0-35.9); MEAN CELL VOLUME 84.6 fl (80-96); MEAN PLT VOLUME 7.3 fl (7.5-11.1); NEUTROPHILS 54.5 % (42.8-82.8); PLATELET COUNT 187 K/MM3 (134-434); RDW 13.5 % (11.9-15.9); WHITE BLOOD COUNT 5.2 K/mm3 (4.0-10.0)
[2016-07-14 08:20] LABS: ALBUMIN 2.5 g/dl (3.4-5.0); CALCIUM 8.5 mg/dL (8.5-10.1); GLUCOSE,RANDOM 90 mg/dL (74-106); SGOT/AST 48 U/L (15-37); SGPT/ALT 33 U/L (12-78)
[2016-07-14 08:24] LABS: ALK PHOS 151 U/L (45-117); ANION GAP 9 (8-16); BILIRUBIN,TOTAL 0.3 mg/dL (0.2-1.0); CO2 26 mmol/L (21-32); CREATININE 1.1 mg/dL (0.7-1.3); TOT PROT 6.4 g/dl (6.4-8.2)
[2016-07-14] MEDS: VALSARTAN 160 MG TABLET (UD) PO SCH (11:50)
[2016-07-14] MEDS: HYDROCHLOROTHIAZIDE 12.5 MG CAPSULE (FP) PO SCH (11:50)
[2016-07-14] MEDS: ASPIRIN COATED 81 MG TABLET.EC PO SCH (11:50)
[2016-07-14] MEDS: HEPARIN NA (PORCINE) 5,000 UNITS/ML 1ML VIAL SQ SCH ×3 (11:54→21:28)
[2016-07-14] MEDS: TAMSULOSIN HCL 0.4 MG CAP.ER.24H (FP) PO SCH (11:54)
--- NOTE | 2016-07-14 13:07 | PN ---
Progress Note, Physician Chief Complaint: sitting up in bed no distress ct scan noted no fever - Current Medication List Current Medications: Active Medications Acetaminophen (Tylenol -) 650 mg PO Q4H PRN PRN Reason: FEVER OR PAIN Last Admin: 07/08/16 14:53 Dose: 650 mg Aspirin (Ecotrin -) 81 mg PO DAILY [facility] Last Admin: 07/14/16 11:50 Dose: 81 mg Atorvastatin Calcium (Lipitor -) 40 mg PO HS [facility] Last Admin: 07/13/16 21:53 Dose: 40 mg Clopidogrel Bisulfate (Plavix -) 75 mg PO HS [facility] Last Admin: 07/13/16 21:53 Dose: 75 mg Heparin Sodium (Porcine) (Heparin -) 5,000 unit SQ BID [facility] Last Admin: 07/14/16 11:56 Dose: Not Given Hydrochlorothiazide (Hctz -) 12.5 mg PO DAILY [facility] Last Admin: 07/14/16 11:50 Dose: 12.5 mg Cefazolin Sodium (Ancef 1 Gm Premixed Ivpb -) 50 mls @ 100 mls/hr IVPB Q8H-IV [facility] Last Admin: 07/14/16 11:51 Dose: 100 mls/hr Sodium Chloride (1/2 Normal Saline) 1,000 mls @ 75 mls/hr IV ASDIR [facility] Last Admin: 07/13/16 21:52 Dose: 75 mls/hr Tamsulosin HCl (Flomax -) 0.8 mg PO DAILY@0830 [facility] Last Admin: 07/14/16 11:54 Dose: 0.8 mg Valsartan (Diovan -) 160 mg PO DAILY [facility] Last Admin: 07/14/16 11:50 Dose: 160 mg - Objective Vital Signs: Vital Signs Temperature 98.5 F 07/14/16 06:33 Pulse Rate 86 07/14/16 06:33 Respiratory Rate 18 07/14/16 06:33 Blood Pressure 122/64 07/14/16 06:33 O2 Sat by Pulse Oximetry (%) 98 07/13/16 21:00 Constitutional: Yes: Calm Neck: Yes: Trachea Midline Cardiovascular: Yes: Regular Rate and Rhythm, S1, S2 Respiratory: Yes: CTA Bilaterally Gastrointestinal: Yes: Normal Bowel Sounds, Soft, Other (drain minimal draiinage ) Edema: No Labs: CBC, BMP 07/14/16 07:00 07/14/16 07:00 INR, PTT INR 1.35 (0.82-1.09) H 07/07/16 09:36 Problem List - Problems (1) Retroperitoneal abscess Assessment/Plan: ct scan shows minimal residual fluid iv FU regarding duration if abx then will need drain removed by IR and pic line placed Code(s): K68.19 - OTHER RETROPERITONEAL ABSCESS (2) Hyperlipidemia Assessment/Plan: statin Code(s): E78.5 - HYPERLIPIDEMIA, UNSPECIFIED (3) Hypertension Assessment/Plan: diovan Code(s): I10 - ESSENTIAL (PRIMARY) HYPERTENSION
--- NOTE | 2016-07-14 14:03 | PN ---
Progress Note, Physician History of Present Illness: patient stable no fevers repeat ct scan shows collection has decreased patient stable - Current Medication List Current Medications: Active Medications Acetaminophen (Tylenol -) 650 mg PO Q4H PRN PRN Reason: FEVER OR PAIN Last Admin: 07/08/16 14:53 Dose: 650 mg Aspirin (Ecotrin -) 81 mg PO DAILY [facility] Last Admin: 07/14/16 11:50 Dose: 81 mg Atorvastatin Calcium (Lipitor -) 40 mg PO HS [facility] Last Admin: 07/13/16 21:53 Dose: 40 mg Clopidogrel Bisulfate (Plavix -) 75 mg PO HS [facility] Last Admin: 07/13/16 21:53 Dose: 75 mg Heparin Sodium (Porcine) (Heparin -) 5,000 unit SQ BID [facility] Last Admin: 07/14/16 11:56 Dose: Not Given Hydrochlorothiazide (Hctz -) 12.5 mg PO DAILY [facility] Last Admin: 07/14/16 11:50 Dose: 12.5 mg Cefazolin Sodium (Ancef 1 Gm Premixed Ivpb -) 50 mls @ 100 mls/hr IVPB Q8H-IV [facility] Last Admin: 07/14/16 11:51 Dose: 100 mls/hr Sodium Chloride (1/2 Normal Saline) 1,000 mls @ 75 mls/hr IV ASDIR [facility] Last Admin: 07/13/16 21:52 Dose: 75 mls/hr Tamsulosin HCl (Flomax -) 0.8 mg PO DAILY@0830 [facility] Last Admin: 07/14/16 11:54 Dose: 0.8 mg Valsartan (Diovan -) 160 mg PO DAILY [facility] Last Admin: 07/14/16 11:50 Dose: 160 mg - Objective Vital Signs: Vital Signs Temperature 98.5 F 07/14/16 06:33 Pulse Rate 86 07/14/16 06:33 Respiratory Rate 18 07/14/16 06:33 Blood Pressure 122/64 07/14/16 06:33 O2 Sat by Pulse Oximetry (%) 98 07/13/16 21:00 Constitutional: Yes: No Distress, Calm Cardiovascular: Yes: Regular Rate and Rhythm Respiratory: Yes: Regular, CTA Bilaterally Gastrointestinal: Yes: Normal Bowel Sounds, Soft Musculoskeletal: Yes: WNL Extremities: Yes: WNL Wound/Incision: Yes: Well Approximated Neurological: Yes: Alert, Oriented Psychiatric: Yes: Alert Labs: CBC, BMP 07/14/16 07:00 07/14/16 07:00 INR, PTT INR 1.35 (0.82-1.09) H 07/07/16 09:36 Assessment/Plan retroperitoneal abscess s/p drainage hld htn smoker Problems (1) Retroperitoneal abscess Code(s): K68.19 - OTHER RETROPERITONEAL ABSCESS (2) Hyperlipidemia Code(s): E78.5 - HYPERLIPIDEMIA, UNSPECIFIED (3) Hypertension Code(s): I10 - ESSENTIAL (PRIMARY) HYPERTENSION plan continue cefazolin patient will need abx for another 10 days
[2016-07-14] MEDS: ATORVASTATIN CA 40 MG TABLET (FP) PO SCH (21:26)
[2016-07-14] MEDS: CLOPIDOGREL BISULFATE 75 MG TABLET (FP) PO SCH (21:26)
[2016-07-14] MEDS: SODIUM CHLORIDE 0.45% 1,000 ML IV SCH (21:28)
[2016-07-15] MEDS: CEFAZOLIN 1 GM/D5W 50 ML IVPB SCH ×3 (02:34→18:18)
[2016-07-15] MEDS: VALSARTAN 160 MG TABLET (UD) PO SCH (10:26)
[2016-07-15] MEDS: HYDROCHLOROTHIAZIDE 12.5 MG CAPSULE (FP) PO SCH (10:26)
[2016-07-15] MEDS: ASPIRIN COATED 81 MG TABLET.EC PO SCH (10:26)
[2016-07-15] MEDS: TAMSULOSIN HCL 0.4 MG CAP.ER.24H (FP) PO SCH (10:26)
[2016-07-15] MEDS: HEPARIN NA (PORCINE) 5,000 UNITS/ML 1ML VIAL SQ SCH ×2 (10:27→21:08)
--- NOTE | 2016-07-15 11:03 | PN ---
Progress Note, Physician Chief Complaint: wants to go home feeling better drain has minimal discharge - Current Medication List Current Medications: Active Medications Acetaminophen (Tylenol -) 650 mg PO Q4H PRN PRN Reason: FEVER OR PAIN Last Admin: 07/08/16 14:53 Dose: 650 mg Aspirin (Ecotrin -) 81 mg PO DAILY [facility] Last Admin: 07/15/16 10:26 Dose: 81 mg Atorvastatin Calcium (Lipitor -) 40 mg PO HS [facility] Last Admin: 07/14/16 21:26 Dose: 40 mg Clopidogrel Bisulfate (Plavix -) 75 mg PO HS [facility] Last Admin: 07/14/16 21:26 Dose: 75 mg Heparin Sodium (Porcine) (Heparin -) 5,000 unit SQ BID [facility] Last Admin: 07/15/16 10:27 Dose: Not Given Hydrochlorothiazide (Hctz -) 12.5 mg PO DAILY [facility] Last Admin: 07/15/16 10:26 Dose: 12.5 mg Cefazolin Sodium (Ancef 1 Gm Premixed Ivpb -) 50 mls @ 100 mls/hr IVPB Q8H-IV [facility] Last Admin: 07/15/16 10:27 Dose: 100 mls/hr Tamsulosin HCl (Flomax -) 0.8 mg PO DAILY@0830 [facility] Last Admin: 07/15/16 10:26 Dose: 0.8 mg Valsartan (Diovan -) 160 mg PO DAILY [facility] Last Admin: 07/15/16 10:26 Dose: 160 mg - Objective Vital Signs: Vital Signs Temperature 99 F 07/15/16 06:00 Pulse Rate 83 07/15/16 06:00 Respiratory Rate 20 07/15/16 06:00 Blood Pressure 117/70 07/15/16 06:00 O2 Sat by Pulse Oximetry (%) 98 07/14/16 21:00 Constitutional: Yes: Calm Neck: Yes: Trachea Midline Cardiovascular: Yes: Regular Rate and Rhythm, S1, S2 Respiratory: Yes: CTA Bilaterally Gastrointestinal: Yes: Normal Bowel Sounds, Soft, Other (drain minimal discharge ) Edema: No Neurological: Yes: Alert, Oriented Labs: CBC, BMP 07/14/16 07:00 07/14/16 07:00 INR, PTT INR 1.35 (0.82-1.09) H 07/07/16 09:36 Problem List - Problems (1) Retroperitoneal abscess Assessment/Plan: ct scan shows minimal residual fluid needs 9 days of abx left message with IR to have dr Almonte call me back to discuss when drain shoulde be removed sanju schedule for picc line tmw needs SNF f or iv abx Code(s): K68.19 - OTHER RETROPERITONEAL ABSCESS (2) Hyperlipidemia Assessment/Plan: statin Code(s): E78.5 - HYPERLIPIDEMIA, UNSPECIFIED (3) Hypertension Assessment/Plan: diovan Code(s): I10 - ESSENTIAL (PRIMARY) HYPERTENSION
--- NOTE | 2016-07-15 11:07 | DS ---
Physical Examination Vital Signs: Vital Signs Temperature 99 F 07/15/16 06:00 Pulse Rate 83 07/15/16 06:00 Respiratory Rate 20 07/15/16 06:00 Blood Pressure 117/70 07/15/16 06:00 O2 Sat by Pulse Oximetry (%) 98 07/14/16 21:00 Constitutional: Yes: Calm Cardiovascular: Yes: Regular Rate and Rhythm, S1, S2 Respiratory: Yes: CTA Bilaterally Gastrointestinal: Yes: Normal Bowel Sounds, Soft Breast(s): Yes: Other (drain minimal drainage) Edema: No Neurological: Yes: Alert, Oriented Labs: CBC, BMP 07/14/16 07:00 07/14/16 07:00 Discharge Summary Reason For Visit: [facility] Current Active Problems Abnormal LFTs (Acute) Retroperitoneal abscess (Acute) Hospital Course: This is a 61 y/o male who is a chronic smoker being admitted to the hospital post drainage of the abscess from the left lower back got drain put in on 07/07 on iv abx cefazolin for another [address] show minimal fluid will need snf for iv abx - Instructions Diet, Activity, Other Instructions: cefazolin 1gm q8hr for 8 days til jul 23 then remove picc line Referrals: Zacarias Xiong MD [Staff Physician] - 3 Weeks Disposition: [facility] - Home Medications Comprehensive Discharge Medication List: Ambulatory Orders Acetaminophen [Tylenol .Regular Strength -] 650 mg PO Q4H PRN #0 tablet Aspirin [ASA -] 81 mg PO HS #0 09/14/15 Atorvastatin Ca [Lipitor] 40 mg PO HS #0 09/14/15 Clopidogrel Bisulfate [Plavix -] 75 mg PO HS #0 09/14/15 Olmesartan/Hydrochlorothiazide [Benicar Hct 20-12.5 mg Tablet] 1 each PO HS #0 09/14/15
[2016-07-15] MEDS ORDERED: PICC LINE 8 ML FLUSH PROTOCOL IVPUSH PRN (11:12)
--- NOTE | 2016-07-15 12:45 | PN ---
Progress Note, Physician History of Present Illness: patient stable no fevers doing well - Current Medication List Current Medications: Active Medications Acetaminophen (Tylenol -) 650 mg PO Q4H PRN PRN Reason: FEVER OR PAIN Last Admin: 07/08/16 14:53 Dose: 650 mg Aspirin (Ecotrin -) 81 mg PO DAILY [facility] Last Admin: 07/15/16 10:26 Dose: 81 mg Atorvastatin Calcium (Lipitor -) 40 mg PO HS [facility] Last Admin: 07/14/16 21:26 Dose: 40 mg Clopidogrel Bisulfate (Plavix -) 75 mg PO HS [facility] Last Admin: 07/14/16 21:26 Dose: 75 mg Heparin Sodium (Porcine) (Heparin -) 5,000 unit SQ BID [facility] Last Admin: 07/15/16 10:27 Dose: Not Given Hydrochlorothiazide (Hctz -) 12.5 mg PO DAILY [facility] Last Admin: 07/15/16 10:26 Dose: 12.5 mg IV Flush (Picc Line Flush) 8 ml IVPUSH PRN PRN PRN Reason: Protocol Cefazolin Sodium (Ancef 1 Gm Premixed Ivpb -) 50 mls @ 100 mls/hr IVPB Q8H-IV [facility] Last Admin: 07/15/16 10:27 Dose: 100 mls/hr Tamsulosin HCl (Flomax -) 0.8 mg PO DAILY@0830 [facility] Last Admin: 07/15/16 10:26 Dose: 0.8 mg Valsartan (Diovan -) 160 mg PO DAILY [facility] Last Admin: 07/15/16 10:26 Dose: 160 mg - Objective Vital Signs: Vital Signs Temperature 99 F 07/15/16 06:00 Pulse Rate 83 07/15/16 06:00 Respiratory Rate 20 07/15/16 06:00 Blood Pressure 117/70 07/15/16 06:00 O2 Sat by Pulse Oximetry (%) 98 07/14/16 21:00 Constitutional: Yes: No Distress, Calm Cardiovascular: Yes: Regular Rate and Rhythm Respiratory: Yes: Regular, CTA Bilaterally Gastrointestinal: Yes: Normal Bowel Sounds, Soft Musculoskeletal: Yes: WNL Extremities: Yes: WNL Neurological: Yes: Alert, Oriented Psychiatric: Yes: Alert Labs: CBC, BMP 07/14/16 07:00 07/14/16 07:00 INR, PTT INR 1.35 (0.82-1.09) H 07/07/16 09:36 Assessment/Plan retroperitoneal abscess s/p drainage hld htn smoker Problems (1) Retroperitoneal abscess Code(s): K68.19 - OTHER RETROPERITONEAL ABSCESS (2) Hyperlipidemia Code(s): E78.5 - HYPERLIPIDEMIA, UNSPECIFIED (3) Hypertension Code(s): I10 - ESSENTIAL (PRIMARY) HYPERTENSION plan continue cefazolin patient will need abx for another 10 days after that will need repeat ct scan rest ct current mgmt
[2016-07-15] MEDS: ATORVASTATIN CA 40 MG TABLET (FP) PO SCH (21:08)
[2016-07-15] MEDS: CLOPIDOGREL BISULFATE 75 MG TABLET (FP) PO SCH (21:08)
[2016-07-16] MEDS: CEFAZOLIN 1 GM/D5W 50 ML IVPB SCH ×3 (01:12→17:51)
[2016-07-16] MEDS: ASPIRIN COATED 81 MG TABLET.EC PO SCH (10:33)
[2016-07-16] MEDS: VALSARTAN 160 MG TABLET (UD) PO SCH (10:33)
[2016-07-16] MEDS: HEPARIN NA (PORCINE) 5,000 UNITS/ML 1ML VIAL SQ SCH ×3 (10:33→21:47)
[2016-07-16] MEDS: HYDROCHLOROTHIAZIDE 12.5 MG CAPSULE (FP) PO SCH (10:33)
[2016-07-16] MEDS: TAMSULOSIN HCL 0.4 MG CAP.ER.24H (FP) PO SCH (10:35)
--- NOTE | 2016-07-16 15:01 | PN ---
Progress Note, Physician History of Present Illness: patient doing well no issues no fevers song drain removed - Current Medication List Current Medications: Active Medications Acetaminophen (Tylenol -) 650 mg PO Q4H PRN PRN Reason: FEVER OR PAIN Last Admin: 07/08/16 14:53 Dose: 650 mg Aspirin (Ecotrin -) 81 mg PO DAILY [facility] Last Admin: 07/16/16 10:33 Dose: 81 mg Atorvastatin Calcium (Lipitor -) 40 mg PO HS [facility] Last Admin: 07/15/16 21:08 Dose: 40 mg Clopidogrel Bisulfate (Plavix -) 75 mg PO HS [facility] Last Admin: 07/15/16 21:08 Dose: 75 mg Heparin Sodium (Porcine) (Heparin -) 5,000 unit SQ BID [facility] Last Admin: 07/16/16 10:52 Dose: Not Given Hydrochlorothiazide (Hctz -) 12.5 mg PO DAILY [facility] Last Admin: 07/16/16 10:33 Dose: 12.5 mg IV Flush (Picc Line Flush) 8 ml IVPUSH PRN PRN PRN Reason: Protocol Cefazolin Sodium (Ancef 1 Gm Premixed Ivpb -) 50 mls @ 100 mls/hr IVPB Q8H-IV [facility] Last Admin: 07/16/16 10:32 Dose: 100 mls/hr Tamsulosin HCl (Flomax -) 0.8 mg PO DAILY@0830 [facility] Last Admin: 07/16/16 10:35 Dose: 0.8 mg Valsartan (Diovan -) 160 mg PO DAILY [facility] Last Admin: 07/16/16 10:33 Dose: 160 mg - Objective Vital Signs: Vital Signs Temperature 98.5 F 07/16/16 13:18 Pulse Rate 101 H 07/16/16 13:18 Respiratory Rate 16 07/16/16 13:18 Blood Pressure 104/52 07/16/16 13:18 O2 Sat by Pulse Oximetry (%) 99 07/16/16 09:00 Constitutional: Yes: No Distress, Calm Cardiovascular: Yes: Regular Rate and Rhythm Respiratory: Yes: Regular, CTA Bilaterally Gastrointestinal: Yes: Normal Bowel Sounds, Soft Musculoskeletal: Yes: WNL Extremities: Yes: WNL Neurological: Yes: Alert, Oriented Psychiatric: Yes: Alert Labs: CBC, BMP 07/14/16 07:00 07/14/16 07:00 INR, PTT INR 1.35 (0.82-1.09) H 07/07/16 09:36 Assessment/Plan retroperitoneal abscess s/p drainage hld htn smoker Problems (1) Retroperitoneal abscess Code(s): K68.19 - OTHER RETROPERITONEAL ABSCESS (2) Hyperlipidemia Code(s): E78.5 - HYPERLIPIDEMIA, UNSPECIFIED (3) Hypertension Code(s): I10 - ESSENTIAL (PRIMARY) HYPERTENSION plan continue cefazolin patient will need abx for another 9 days after that will need repeat ct scan rest ct current mgmt
[2016-07-16] MEDS: CLOPIDOGREL BISULFATE 75 MG TABLET (FP) PO SCH (21:45)
[2016-07-16] MEDS: ATORVASTATIN CA 40 MG TABLET (FP) PO SCH (21:45)
--- NOTE | 2016-07-16 22:22 | PN ---
Progress Note, Physician History of Present Illness: Drainage tube was removed - Current Medication List Current Medications: Active Medications Acetaminophen (Tylenol -) 650 mg PO Q4H PRN PRN Reason: FEVER OR PAIN Last Admin: 07/08/16 14:53 Dose: 650 mg Aspirin (Ecotrin -) 81 mg PO DAILY [facility] Last Admin: 07/16/16 10:33 Dose: 81 mg Atorvastatin Calcium (Lipitor -) 40 mg PO HS [facility] Last Admin: 07/16/16 21:45 Dose: 40 mg Clopidogrel Bisulfate (Plavix -) 75 mg PO HS [facility] Last Admin: 07/16/16 21:45 Dose: 75 mg Heparin Sodium (Porcine) (Heparin -) 5,000 unit SQ BID [facility] Last Admin: 07/16/16 21:47 Dose: Not Given Hydrochlorothiazide (Hctz -) 12.5 mg PO DAILY [facility] Last Admin: 07/16/16 10:33 Dose: 12.5 mg IV Flush (Picc Line Flush) 8 ml IVPUSH PRN PRN PRN Reason: Protocol Cefazolin Sodium (Ancef 1 Gm Premixed Ivpb -) 50 mls @ 100 mls/hr IVPB Q8H-IV [facility] Last Admin: 07/16/16 17:51 Dose: 100 mls/hr Tamsulosin HCl (Flomax -) 0.8 mg PO DAILY@0830 [facility] Last Admin: 07/16/16 10:35 Dose: 0.8 mg Valsartan (Diovan -) 160 mg PO DAILY [facility] Last Admin: 07/16/16 10:33 Dose: 160 mg - Objective Vital Signs: Vital Signs Temperature 98.6 F 07/16/16 17:49 Pulse Rate 100 H 07/16/16 17:49 Respiratory Rate 20 07/16/16 17:49 Blood Pressure 111/64 07/16/16 17:49 O2 Sat by Pulse Oximetry (%) 99 07/16/16 09:00 Cardiovascular: Yes: WNL, Regular Rate and Rhythm Respiratory: Yes: WNL, Regular, CTA Bilaterally Gastrointestinal: Yes: WNL, Normal Bowel Sounds, Soft Labs: CBC, BMP 07/14/16 07:00 07/14/16 07:00 INR, PTT INR 1.35 (0.82-1.09) H 07/07/16 09:36 Problem List - Problems (1) Retroperitoneal abscess Assessment/Plan: Fluid grew staph coag pos Cont IV cefazolin for another 9 days PIC line for am Code(s): K68.19 - OTHER RETROPERITONEAL ABSCESS (2) Hypertension Assessment/Plan: BP stable Cont diovan/hctz/asa Code(s): I10 - ESSENTIAL (PRIMARY) HYPERTENSION (3) Hyperlipidemia Assessment/Plan: Cont lipitor Code(s): E78.5 - HYPERLIPIDEMIA, UNSPECIFIED
[2016-07-16] MEDS ORDERED: PICC LINE 8 ML FLUSH PROTOCOL IVPUSH PRN (22:23)
[2016-07-17] MEDS: CEFAZOLIN 1 GM/D5W 50 ML IVPB SCH ×2 (02:05→12:23)
[2016-07-17] MEDS: TAMSULOSIN HCL 0.4 MG CAP.ER.24H (FP) PO SCH (08:50)
[2016-07-17] MEDS ORDERED: PT OWN MED DRAWER 7, Y5N ONE (10:27)
[2016-07-17] MEDS: HYDROCHLOROTHIAZIDE 12.5 MG CAPSULE (FP) PO SCH (12:22)
[2016-07-17] MEDS: VALSARTAN 160 MG TABLET (UD) PO SCH (12:22)
[2016-07-17] MEDS: ASPIRIN COATED 81 MG TABLET.EC PO SCH (12:22)
[2016-07-17] MEDS: HEPARIN NA (PORCINE) 5,000 UNITS/ML 1ML VIAL SQ SCH ×2 (12:23→12:31)
[2016-07-17 14:55] VITALS: BP 110/70; PULSE 107; TEMP 98.2
--- NOTE | 2016-07-17 15:41 | PN ---
Progress Note, Physician History of Present Illness: stable no new issues picc line placed tolerating abx - Current Medication List Current Medications: Active Medications Acetaminophen (Tylenol -) 650 mg PO Q4H PRN PRN Reason: FEVER OR PAIN Last Admin: 07/08/16 14:53 Dose: 650 mg Aspirin (Ecotrin -) 81 mg PO DAILY [facility] Last Admin: 07/17/16 12:22 Dose: 81 mg Atorvastatin Calcium (Lipitor -) 40 mg PO HS [facility] Last Admin: 07/16/16 21:45 Dose: 40 mg Clopidogrel Bisulfate (Plavix -) 75 mg PO HS [facility] Last Admin: 07/16/16 21:45 Dose: 75 mg Heparin Sodium (Porcine) (Heparin -) 5,000 unit SQ BID [facility] Last Admin: 07/17/16 12:31 Dose: Not Given Hydrochlorothiazide (Hctz -) 12.5 mg PO DAILY [facility] Last Admin: 07/17/16 12:22 Dose: 12.5 mg IV Flush (Picc Line Flush) 8 ml IVPUSH PRN PRN PRN Reason: Protocol IV Flush (Picc Line Flush) 8 ml IVPUSH PRN PRN PRN Reason: Protocol Tamsulosin HCl (Flomax -) 0.8 mg PO DAILY@0830 [facility] Last Admin: 07/17/16 08:50 Dose: 0.8 mg Valsartan (Diovan -) 160 mg PO DAILY [facility] Last Admin: 07/17/16 12:22 Dose: 160 mg - Objective Vital Signs: Vital Signs Temperature 98.2 F 07/17/16 14:53 Pulse Rate 107 H 07/17/16 14:53 Respiratory Rate 16 07/17/16 14:53 Blood Pressure 110/70 07/17/16 14:53 O2 Sat by Pulse Oximetry (%) 96 07/17/16 09:00 Constitutional: Yes: No Distress, Calm HENT: Yes: Atraumatic Neck: Yes: Supple, Trachea Midline Cardiovascular: Yes: Regular Rate and Rhythm Respiratory: Yes: Regular, CTA Bilaterally Gastrointestinal: Yes: Normal Bowel Sounds, Soft Musculoskeletal: Yes: WNL Extremities: Yes: WNL Neurological: Yes: Alert, Oriented Psychiatric: Yes: Alert, Oriented Labs: CBC, BMP 07/14/16 07:00 07/14/16 07:00 INR, PTT INR 1.35 (0.82-1.09) H 07/07/16 09:36 Assessment/Plan retroperitoneal abscess s/p drainage hld htn smoker Problems (1) Retroperitoneal abscess Code(s): K68.19 - OTHER RETROPERITONEAL ABSCESS (2) Hyperlipidemia Code(s): E78.5 - HYPERLIPIDEMIA, UNSPECIFIED (3) Hypertension Code(s): I10 - ESSENTIAL (PRIMARY) HYPERTENSION plan continue cefazolin patient will need abx for another 8 days after that will need repeat ct scan rest ct current mgmt
== END 2016-07-17 18:01 | DRG 358 ==
LOC: JRADIR 09:28 → J8W 15:45
PROVIDERS: ADMIT Internal Medicine; ATTEND Internal Medicine
PROC: 0W9H40Z Drainage of Retroperitoneum with Drainage Device, Percutaneous Endoscopic Approach (ICD-10-PCS; principal; 2016-07-07)
PROC: 02HV33Z Insertion of Infusion Device into Superior Vena Cava, Percutaneous Approach (ICD-10-PCS; 2016-07-17)
DX: K68.19 Other retroperitoneal abscess (principal); E78.5 Hyperlipidemia, unspecified; I10 Essential (primary) hypertension; I25.10 Atherosclerotic heart disease of native coronary artery without angina pectoris; Z98.61 Coronary angioplasty status; F17.210 Nicotine dependence, cigarettes, uncomplicated; J44.9 Chronic obstructive pulmonary disease, unspecified
CPT/HCPCS: 36415; 36569; 49406; 49424; 74177-TC; 76080-TC; 76098-TC; 76380-TC; 77001-TC; 80053; 85025; 85610; 87040; 87070; 87075; 87116; 87186; 87205; 87206; 87899; 93970-TC; 97116-GP; 97161-GP; C1729; C1751; C1769; J1644

== ENCOUNTER 2019-04-08 10:15 | Day surgery (SDC) | payer BC ==
[2019-04-07 17:11] VITALS: BMI 23.3
[2019-04-08] MEDS ORDERED: BUPIVACAINE HCL/PF 0.5% (5 MG/ML) 30 ML VIAL IJ ONE (14:47)
[2019-04-08] MEDS ORDERED: PROPOFOL 20 ML ONE ×2 (14:55→15:13)
[2019-04-08] MEDS ORDERED: MIDAZOLAM HCL 2 MG/2 ML SINGLE DOSE VIAL ONE ×2 (14:55→15:41)
[2019-04-08] MEDS ORDERED: ceFAZolin SODIUM 1 GM VIAL IVPB ONE (15:16)
[2019-04-08] MEDS ORDERED: PROMETHAZINE HCL 25 MG/1 ML VIAL IVPB PRN (15:25)
[2019-04-08] MEDS ORDERED: ONDANSETRON 4 MG/2 ML VIAL IVPUSH PRN (15:25)
[2019-04-08] MEDS ORDERED: LACTATED RINGERS SOLUTION 1,000 ML IV SCH (15:30)
[2019-04-08] MEDS ORDERED: ACETAMINOPHEN 325 MG TABLET (FP) PO PRN ×2 (16:14)
--- NOTE | 2019-04-08 16:17 | PN ---
Progress Note (short form) - Note Progress Note: UROLOGY NOTE. S/P TURP/TUBT. PT. HAD UNEVENTFULL OPERATIVE COURSE
[2019-04-08] MEDS ORDERED: oxyCODONE HCL 5 MG TABLET PO PRN (16:21)
--- NOTE | 2019-04-08 16:21 | OP ---
Operative Note - Note: Operative Date: 04/08/19 Pre-Operative Diagnosis: BPH WITH LUTS AND BLADDER TUMOR Operation: TURP/TURBT Findings: LARGE OBSTRUCTING PROSTATE AND PAPILLARY BLADDER TUMOR OF RT. HEMITRIGONE Post-Operative Diagnosis: Same as Pre-op Surgeon: Brandan Xiong Anesthesia: Spinal Specimens Removed: PROSTATED CHIPS AND TUMOR CHIPS Estimated Blood Loss (mls): 50 Drains & Tubes with Location: 24F 30CC CROCKETT Drains, Volume Out (mls): 0 Blood Volume Replaced (mls): 0 Fluid Volume Replaced (mls): 0 Operative Report Dictated: Yes
--- NOTE | 2019-04-08 17:55 | OP ---
DATE OF OPERATION: 04/08/2019 PREOPERATIVE DIAGNOSIS: Obstructive prostate and bladder tumor. POSTOPERATIVE DIAGNOSIS: Obstructive prostate and bladder tumor. OPERATIVE PROCEDURE: Cystourethroscopy, collection of urine for [employer] and cytology, TURP, TUVP, and TUR bladder tumor. ANESTHESIA: Spinal. DESCRIPTION OF PROCEDURE: Under above stated anesthesia, patient was prepped and draped in the usual sterile manner. He was placed in the dorsal lithotomy position. A cystoscope was introduced under direct vision. Anterior urethra was within normal limits. Prostatic urethra revealed trilobar hypertrophy with lateral lobe kissing. Bladder was entered and 200 mL of residual urine was drained. This was sent for cytology and [employer]. Inspection of the bladder revealed a grade 2-3 trabeculation throughout. The prostate appeared to be protruding into the bladder neck. Right below the protruding prostate was a papillary growth in the right hemitrigone proximal to the right ureteral orifice. No other lesions were seen. Ureteral orifices were within normal limits with efflux of clear urine. A resectoscope bipolar was introduced and resection of the prostate was commenced in the usual fashion. Prostate chips were evacuated with an Ellik evacuator. After the prostate was resected the bladder tumor was visualized in the proximal trigone. This appeared to be 4 cm in diameter and papillary in character. The tumor was resected with a resectoscope. Tumor chips were evacuated with an Ellik evacuator. The base was cauterized. VaporTrode was then introduced and excess prostate tissue was vaporized. No active bleeding was noted. The bladder was emptied. The scope was removed. The [address] was inserted. This was connected to a leg bag. The patient tolerated the procedure well. He returned to the recovery room in good condition. Marly [id number]
[2019-04-08 20:44] VITALS: BP 128/76; PULSE 68; TEMP 97.8
--- NOTE | 2019-04-12 16:38 | PATH ---
Cytology Non-Gynecological Report Patient Name: MALAIKA MONTENEGRO [facility]. Rec. #: [id number] /Age/Gender: 1955 (Age: 63) / M Account: [id number] Location: [facility] SURG[facility] Taken: 04/08/2019 Received: 04/11/2019 Reported: 04/12/2019 Physicians: Brandan Xiong M.D. Specimen(s) Received URINE Clinical History Urine Final Diagnosis URINE FOR CYTOLOGY: SATISFACTORY FOR EVALUATION. UROTHELIAL FRAGMENTS CONSISTENT WITH LOW GRADE UROTHELIAL NEOPLASM. MANY UROTHELIAL FRAGMENTS IN A BACKGROUND OF UROTHELIAL CELLS, SQUAMOUS EPITHELIAL CELLS, NUMEROUS RED BLOOD CELLS, LYMPHOCYTES, AND NEUTROPHILS PRESENT. Comment: See concurrent biopsy ([id number]). Electronically Signed Dahlia Lentz M.D. Gross Description Approximately 50 cc of ladi colored fluid received fresh. One cytofunnel prepared and Pap stained.
--- NOTE | 2019-04-14 15:30 | PATH ---
Surgical Pathology Report Patient Name: MALAIKA MONTENEGRO [facility]. Rec. #: [id number] /Age/Gender: 1955 (Age: 63) / M Account: [id number] Location: [facility] Taken: 04/08/2019 Received: 04/11/2019 Reported: 04/14/2019 Physicians: Brandan Xiong M.D. Specimen(s) Received A: BLADDER TUMOR B: PROSTATE CHIPS Clinical History Hematuria, BPH Final Diagnosis A. BLADDER TUMOR, TRANSURETHRAL RESECTION OF BLADDER TUMOR: LOW GRADE PAPILLARY UROTHELIAL CARCINOMA, NON-INVASIVE. MUSCULARIS PROPRIA IDENTIFIED. NO FLAT CARCINOMA IN SITU (CIS) IDENTIFIED. B. PROSTATE, TRANSURETHRAL RESECTION OF PROSTATE: LOW GRADE PAPILLARY UROTHELIAL CARCINOMA, NON-INVASIVE. MUSCULARIS PROPRIA IDENTIFIED. NO FLAT CARCINOMA IN SITU (CIS) IDENTIFIED. BENIGN PROSTATIC TISSUE WITH GLANDULAR, BASAL CELL, AND STROMAL HYPERPLASIA. Comment: Immunohistochemical stain performed and interpreted (part B) at [facility] show p63 highlights basal cells. Case seen in intradepartmental review with consensus on diagnosis. Office of Dr. Xiong informed that significant findings discussed will be faxed (Stephanie). Electronically Signed Dahlia Lentz M.D. Gross Description A. Received in formalin labeled "bladder tumor," are 2 estrella portions of soft tissue averaging 0.6 cm in greatest dimension. The specimens are submitted in toto in one cassette. B. Received in formalin labeled "prostate tissue," is a 5 g, 6.0 x 5.5 x 0.6 cm aggregate of estrella, firm to rubbery portions of tissue, consistent with prostate chips. The specimen is entirely submitted in 6 cassettes. DL/04/11/2019 saudi/04/11/2019
== END 2019-04-08 20:05 | disposition home or self-care (01) ==
LOC: JASU-SURG 10:15
PROVIDERS: ATTEND Urology
PROC: 0V508ZZ Destruction of Prostate, Via Natural or Artificial Opening Endoscopic (ICD-10-PCS; principal; 2019-04-08 13:00)
PROC: 0T5B8ZZ Destruction of Bladder, Via Natural or Artificial Opening Endoscopic (ICD-10-PCS; 2019-04-08 13:00)
DX: N40.1 Benign prostatic hyperplasia with lower urinary tract symptoms (principal); C61 Malignant neoplasm of prostate; C67.9 Malignant neoplasm of bladder, unspecified; R31.9 Hematuria, unspecified
CPT/HCPCS: 87086; 88108; 94760

== ENCOUNTER 2019-05-06 00:50 | Inpatient (IN) | payer BC ==
[2019-05-06] MEDS ORDERED: morphine CARPU-JECT 4 MG/1 ML DISP.SYRIN IVPUSH ONE ×2 (01:34→03:49)
[2019-05-06] MEDS ORDERED: morphine SULFATE 4 MG/ML VIAL ONE ×2 (02:00→03:56)
--- NOTE | 2019-05-06 02:01 | PDOC ---
History of Present Illness - General Chief Complaint: Penile Drainage Stated Complaint: BLEEDING PENAL AREA Time Seen by Provider: 05/06/19 01:07 History Source: Patient Exam Limitations: No Limitations - History of Present Illness Initial Comments: 05/09/19 07:34 HPI: 64M PMH HTN, HLD, Bladder Ca s/p TURP/TUBT 04/08/19 c/o 2 hours of bleeding from the penis and penile head pain. Bleeding initially started as hematuria every 2-3 minutes which progressed to continuous bleeding. Asymptomatic prior to sx onset. Denies f/c, cp/sob, lightheadedness. Pain involved suprapubic region during exam. No n/v. Not on AC. Urologist = Dr. Trino Xiong PCP = Dr. Sandra YOUNG Past History - Past Medical History Allergies/Adverse Reactions: Allergies Allergy/AdvReac Type Severity Reaction Status Date / Time No Known Allergies Allergy Verified 05/06/19 01:04 Home Medications: Ambulatory Orders Aspirin [ASA -] 81 mg PO HS #0 09/14/15 Atorvastatin Ca [Lipitor] 20 mg PO HS 04/08/19 Losartan Potassium 25 mg PO HS 04/08/19 Metoprolol Succinate 25 mg PO HS 04/08/19 Mv-Mn/Folic Acid/Lutein/Agf630 [Mens Multivit High Potency Tab] 1 each PO DAILY 04/08/19 Tamsulosin HCl [Flomax -] 0.4 mg PO HS 04/08/19 Anemia: No Cardiac Disorders: Yes (STENTS) COPD: Yes HTN: Yes Hypercholesterolemia: Yes - Surgical History Cardiac Surgery: Yes (STENTS) - Psycho Social/Smoking Cessation Hx Smoking History: Never smoked Have you smoked in the past 12 months: No Number of Cigarettes Smoked Daily: 10 Information on smoking cessation initiated: No 'Breaking Loose' booklet given: 07/04/16 Hx Alcohol Use: No Drug/Substance Use Hx: No Substance Use Type: None Hx Substance Use Treatment: No Review of Systems - Review of Systems Able to Perform ROS?: Yes Comments:: 05/09/19 07:34 ROS: CONSTITUTIONAL: Denies F / C HEENT: Denies headache, lightheadedness, dizziness RESP: Denies SOB CARD: Denies chest pain GI: ENDORSES suprapubic pain. Denies n/v : ENDORSES hematuria. SKIN: Denies rashes NEURO: Denies numbness, tingling, weakness MSK: Denies back pain Is the patient limited Turkmen proficient: No *Physical Exam - Vital Signs Last Vital Signs Temp Pulse Resp BP Pulse Ox 99.9 F H 122 H 22 H 197/114 H 100 05/06/19 01:04 05/06/19 01:04 05/06/19 01:04 05/06/19 01:04 05/06/19 01:04 - Physical Exam Comments: 05/09/19 07:34 PE: GEN: Standing in moderate discomfort . AAOx3 HEENT: NC/AT. No facial asymmetry. Normal voice. Supple neck w/ FROM. CV: S1/S2, RRR, no m/r/g LUNG: CTAB, no wheezes, crackles, rales, rhonchi. GI: ndnt, +BS, no guarding, no rebound. No masses. : No scrotal or penile swelling. No hernias or testicular masses palpated. No testicular/scrotal pain. Patient is not circumcised. There is active bleeding from the meatus with passage of clots EXTREMITIES: No obvious deformities of all extremities. SKIN: warm, dry, normal turgor PSYCH: normal mood and affect NEURO: Moving all extremities well. ED Treatment Course - LABORATORY CBC & Chemistry Diagram: 05/08/19 08:33 05/08/19 08:33 Medical Decision Making - Medical Decision Making 05/06/19 01:50 MDM: 64M w/ acute painful penile bleeding s/p TURP/TUBT 04/08/19. Passing clots. - CBC, CMP, coags, T&S - UA, UC - EKG - Pain control - continuous bladder irrigation - urology c/s 05/06/19 03:30 Discussed pt w/ Dr. Libby Xiong - 22fr CBI, admit, will see in AM 22fr mccarty placed - CBI initiated morphine admitted to Dr. Castañeda Discharge - Discharge Information Problems reviewed: Yes Clinical Impression/Diagnosis: Hematuria Qualifiers: Hematuria type: gross Qualified Code(s): R31.0 - Gross hematuria - Follow up/Referral - Patient Discharge Instructions - Post Discharge Activity
[2019-05-06 02:15] LABS: BASO % 0.6 % (0-2.0); EOS % 2.4 % (0-4.5); HEMATOCRIT 31.6 % (35.4-49); HEMOGLOBIN 10.9 GM/dL (11.7-16.9); LYMPH % 17.2 % (8-40); MCH 30.3 pg (25.7-33.7); MCHC 34.4 g/dl (32.0-35.9); MEAN CELL VOLUME 88.1 fl (80-96); MONO % 7.1 % (3.8-10.2); NEUT % 72.7 % (42.8-82.8); PLATELET COUNT 232 K/MM3 (134-434); RBC 3.59 M/mm3 (4.00-5.60); RDW 13.7 % (11.9-15.9); WHITE BLOOD COUNT 9.6 K/mm3 (4.0-10.0)
--- NOTE | 2019-05-06 02:20 | PDOC ---
Attending Attestation - Resident Resident Name: JesusMarc - ED Attending Attestation I have performed the following: I have examined & evaluated the patient, The case was reviewed & discussed with the resident, I agree w/resident's findings & plan, Exceptions are as noted - HPI HPI: 05/06/19 02:55 Agree with resident HPI - Physicial Exam PE: 05/06/19 02:55 Agree with resident exam - Medical Decision Making 05/06/19 02:55 64M s/p TURP and resection a month ago here with gross hematuria for 2 hours, now passing clots f/u labs analgesia, revitalize after pain control 3-way mccarty, cbi urology eval admit
[2019-05-06 02:24] LABS: INR 1.08 (0.83-1.09); PROTHROMBIN TIME (PATIENT) 12.8 SEC (9.7-13.0)
[2019-05-06 02:42] LABS: ALBUMIN 3.7 g/dl (3.4-5.0); BILIRUBIN,TOTAL 0.4 mg/dL (0.2-1); BLOOD UREA NITROGEN 34.7 mg/dL (7-18); CALCIUM 8.7 mg/dL (8.5-10.1); CREATININE 1.5 mg/dL (0.55-1.3); TOT PROT 6.6 g/dl (6.4-8.2)
[2019-05-06] MEDS ORDERED: LIDOCAINE HCL 2% JELLY (5 ML/TUBE) ONE (03:04)
[2019-05-06 03:26] LABS: EPI CELLS 0.1 /HPF (0-5/HPF); HYALINE CASTS 0 /lpf (0-8); PH,URINE 7.5 (5.0-8.0); URINE APPEARANCE TURBID; URINE BACTERIA 6.5 /hpf (NEGATIVE); URINE BILIRUBIN NEGATIVE (NEGATIVE); URINE COLOR YELLOW; URINE GLUCOSE (UA) TRACE (NEGATIVE); URINE KETONE NEGATIVE (NEGATIVE); URINE LEUK ESTERASE NEGATIVE (NEGATIVE); URINE NITRITE NEGATIVE (NEGATIVE); URINE PROTEIN 4+ (NEGATIVE); URINE RBC 38 /hpf (0-4); URINE UROBILINOGEN 0.2 mg/dL (0.2-1.0); URINE WBC 3 /hpf (0-5)
[2019-05-06] MEDS ORDERED: SODIUM CHLORIDE 1,000 ML IV STA (03:54)
[2019-05-06] MEDS ORDERED: CEFTRIAXONE 1 GM/50 ML BAG ONE (03:56)
[2019-05-06] MEDS ORDERED: ACETAMINOPHEN 1000 MG/100 ML VIAL (NON FORMULARY) IVPB ONE (05:01)
[2019-05-06 06:52] LABS: YEAST NONE SEEN (NEGATIVE)
[2019-05-06 11:52] VITALS: BMI 26.1
[2019-05-06] MEDS: metoPROLOL SUCCINATE 25 MG TAB.SR.24H (FP) PO SCH (12:08)
[2019-05-06] MEDS: DEXTROSE 5%-0.45% SALINE 1,000 ML IV SCH (12:10)
[2019-05-06 12:55] LABS: BASO % 0.4 % (0-2.0); EOS % 0.5 % (0-4.5); HEMOGLOBIN 9.2 GM/dL (11.7-16.9); LYMPH % 14.8 % (8-40); MCH 30.2 pg (25.7-33.7); MEAN CELL VOLUME 88.7 fl (80-96); MEAN PLT VOLUME 8.3 fl (7.5-11.1); MONO % 11.6 % (3.8-10.2); NEUT % 72.7 % (42.8-82.8); PLATELET COUNT 159 K/MM3 (134-434); RBC 3.05 M/mm3 (4.00-5.60); WHITE BLOOD COUNT 7.4 K/mm3 (4.0-10.0)
--- NOTE | 2019-05-06 13:01 | EKG ---
Test Reason : Blood Pressure : / mmHG Vent. Rate : 118 BPM Atrial Rate : 118 BPM P-R Int : 134 ms QRS Dur : 096 ms QT Int : 330 ms P-R-T Axes : 062 020 026 degrees QTc Int : 462 ms SINUS TACHYCARDIA INCOMPLETE RIGHT BUNDLE BRANCH BLOCK NONSPECIFIC ST ABNORMALITY ABNORMAL ECG WHEN COMPARED WITH ECG OF 12-SEP-2015 09:10, NON-SPECIFIC CHANGE IN ST SEGMENT IN ANTERIOR LEADS Confirmed by THERESA FAULKNER MD ([id number]) on 05/06/2019 1:01:18 PM Referred By: Confirmed By:THERESA FAULKNER MD
[2019-05-06 13:27] LABS: ALBUMIN 3.5 g/dl (3.4-5.0); BILIRUBIN,TOTAL 0.3 mg/dL (0.2-1); BLOOD UREA NITROGEN 40.6 mg/dL (7-18); CALCIUM 8.6 mg/dL (8.5-10.1); CREATININE 1.6 mg/dL (0.55-1.3); POTASSIUM 4.5 mmol/L (3.5-5.1)
--- NOTE | 2019-05-06 18:05 | CONS ---
DATE OF CONSULTATION: DATE OF DICTATION: 05/06/2019 HISTORY: Patient is a 64-year-old admitted via the emergency room with acute onset of gross hematuria as well as clot retention. The patient is status post a TURP 3 weeks earlier. He does have history of coronary artery disease and has 2 stents placed in last year. Has a history of COPD, dyslipidemia as well as hypertension. He is on multiple medications including a statin, aspirin, metoprolol, losartan, folic acid, and Flomax. In the emergency room, his temperature was 99.9, his pulse was 122, blood pressure 197/114, pulse oximetry 100. His white count was 9.6, hemoglobin 10.3, hematocrit 31.6. BUN 34.7, creatinine 1.5. Random glucose was 172. Impression at present is a 64-year-old male status post TURP on April 08, 2019. Started bleeding earlier this evening and developed clot retention. IMPRESSION: At present is post transurethral resection of the prostate bleeding. PLAN: We will continue with Del Valle and bladder irrigation. We will increase p.o. fluids, monitor hemoglobin and hematocrit. We will follow with you. ALFONZO DONNELLY M.D. [id number]
--- NOTE | 2019-05-06 19:05 | HP ---
Admitting History and Physical - Past Medical History Cardiovascular: Yes: CAD (s/p PCI 2 years ago), HTN, Hyperlipdemia Pulmonary: Yes: COPD - Smoking History Smoking history: Never smoked Have you smoked in the past 12 months: No Aproximately how many cigarettes per day: 10 - Alcohol/Substance Use Hx Alcohol Use: No - Social History ADL: Independent History of Recent Travel: No Home Medications - Allergies Allergies/Adverse Reactions: Allergies Allergy/AdvReac Type Severity Reaction Status Date / Time No Known Allergies Allergy Verified 05/06/19 01:04 - Home Medications Home Medications: Ambulatory Orders Aspirin [ASA -] 81 mg PO HS #0 09/14/15 Atorvastatin Ca [Lipitor] 20 mg PO HS 04/08/19 Losartan Potassium 25 mg PO DAILY 04/08/19 Metoprolol Succinate 25 mg PO DAILY 04/08/19 Mv-Mn/Folic Acid/Lutein/Ini909 [Mens Multivit High Potency Tab] 1 each PO DAILY 04/08/19 Tamsulosin HCl [Flomax -] 0.4 mg PO DAILY@0830 04/08/19 Physical Examination Vital Signs: Vital Signs Temperature 97.3 F L 05/06/19 13:28 Pulse Rate 62 05/06/19 13:28 Respiratory Rate 20 05/06/19 13:28 Blood Pressure 105/48 L 05/06/19 13:28 O2 Sat by Pulse Oximetry (%) 100 05/06/19 17:11 Labs: CBC, BMP 05/06/19 12:27 05/06/19 12:27
[2019-05-06] MEDS: ATORVASTATIN CA 40 MG TABLET (FP) PO SCH (21:12)
[2019-05-07] MEDS: DEXTROSE 5%-0.45% SALINE 1,000 ML IV SCH ×2 (06:00→22:17)
[2019-05-07 08:55] LABS: BASO % 0.3 % (0-2.0); EOS % 2.4 % (0-4.5); HEMATOCRIT 24.4 % (35.4-49); HEMOGLOBIN 8.3 GM/dL (11.7-16.9); LYMPH % 24.5 % (8-40); MCH 30.2 pg (25.7-33.7); MEAN CELL VOLUME 88.9 fl (80-96); MONO % 8.7 % (3.8-10.2); NEUT % 64.1 % (42.8-82.8); PLATELET COUNT 138 K/MM3 (134-434); RBC 2.74 M/mm3 (4.00-5.60); RDW 13.7 % (11.9-15.9); WHITE BLOOD COUNT 5.6 K/mm3 (4.0-10.0)
[2019-05-07 09:17] LABS: ALBUMIN 3.1 g/dl (3.4-5.0); BILIRUBIN,TOTAL 0.6 mg/dL (0.2-1); BLOOD UREA NITROGEN 26.5 mg/dL (7-18); CREATININE 1.1 mg/dL (0.55-1.3); TOT PROT 5.4 g/dl (6.4-8.2)
[2019-05-07] MEDS ORDERED: cefTRIAXone SODIUM 1 GM VIAL ONE (09:18)
[2019-05-07] MEDS ORDERED: DEXTROSE 5%-WATER - 50 ML IVPB ONE (09:18)
[2019-05-07] MEDS: metoPROLOL SUCCINATE 25 MG TAB.SR.24H (FP) PO SCH (09:47)
[2019-05-07] MEDS: LOSARTAN POTASSIUM 25 MG TABLET PO SCH (09:47)
[2019-05-07] MEDS: CEFTRIAXONE 1 GM in DEXTROSE 5%-WATER - 50 ML IVPB SCH (09:47)
[2019-05-07] MEDS: TAMSULOSIN HCL 0.4 MG CAP PO SCH (09:47)
[2019-05-07] MEDS: ATORVASTATIN CA 40 MG TABLET (FP) PO SCH (22:14)
--- NOTE | 2019-05-07 23:49 | PN ---
Progress Note, Physician - Current Medication List Current Medications: Active Medications Atorvastatin Calcium (Lipitor -) 20 mg PO HS [facility] Last Admin: 05/07/19 22:14 Dose: 20 mg Dextrose/Sodium Chloride (D5-1/2ns -) 1,000 mls @ 75 mls/hr IV [facility] ED Last Admin: 05/07/19 22:17 Dose: 75 mls/hr Ceftriaxone Sodium 1 gm/ (Dextrose) 50 mls @ 100 mls/hr IVPB DAILY [facility]; Protocol Last Admin: 05/07/19 09:47 Dose: 100 mls/hr Losartan Potassium (Cozaar -) 25 mg PO DAILY [facility] Last Admin: 05/07/19 09:47 Dose: 25 mg Metoprolol Succinate (Toprol Xl -) 25 mg PO DAILY [facility] Last Admin: 05/07/19 09:47 Dose: 25 mg Tamsulosin HCl (Flomax -) 0.4 mg PO DAILY@0830 [facility] Last Admin: 05/07/19 09:47 Dose: 0.4 mg - Objective Vital Signs: Vital Signs Temperature 99.0 F 05/07/19 14:00 Pulse Rate 73 05/07/19 14:00 Respiratory Rate 20 05/07/19 14:00 Blood Pressure 116/58 L 05/07/19 14:00 O2 Sat by Pulse Oximetry (%) 100 05/07/19 09:00 Labs: CBC, BMP 05/07/19 07:07 05/07/19 07:07 INR, PTT INR 1.08 (0.83-1.09) 05/06/19 01:59
[2019-05-08] MEDS ORDERED: cefTRIAXone SODIUM 1 GM VIAL ONE (08:08)
[2019-05-08] MEDS ORDERED: DEXTROSE 5%-WATER - 50 ML IVPB ONE (08:08)
[2019-05-08 09:12] LABS: HEMATOCRIT 25.3 % (35.4-49); HEMOGLOBIN 8.7 GM/dL (11.7-16.9); MCH 30.2 pg (25.7-33.7); MCHC 34.4 g/dl (32.0-35.9); MEAN CELL VOLUME 87.5 fl (80-96); MEAN PLT VOLUME 8.6 fl (7.5-11.1); PLATELET COUNT 144 K/MM3 (134-434); RBC 2.89 M/mm3 (4.00-5.60); RDW 13.6 % (11.9-15.9); WHITE BLOOD COUNT 4.8 K/mm3 (4.0-10.0)
[2019-05-08 09:28] LABS: INR 1.06 (0.83-1.09); PROTHROMBIN TIME (PATIENT) 12.5 SEC (9.7-13.0)
[2019-05-08 09:29] LABS: BLOOD UREA NITROGEN 16.5 mg/dL (7-18); CALCIUM 8.1 mg/dL (8.5-10.1); CREATININE 1.1 mg/dL (0.55-1.3); MAGNESIUM 1.9 mg/dL (1.8-2.4); PHOSPHOROUS 2.2 mg/dL (2.5-4.9); POTASSIUM 3.5 mmol/L (3.5-5.1)
[2019-05-08] MEDS: LOSARTAN POTASSIUM 25 MG TABLET PO SCH (10:08)
[2019-05-08] MEDS: CEFTRIAXONE 1 GM in DEXTROSE 5%-WATER - 50 ML IVPB SCH (10:08)
[2019-05-08] MEDS: metoPROLOL SUCCINATE 25 MG TAB.SR.24H (FP) PO SCH (10:08)
[2019-05-08] MEDS: TAMSULOSIN HCL 0.4 MG CAP PO SCH (10:08)
--- NOTE | 2019-05-08 11:29 | PN ---
Progress Note (short form) - Note Progress Note: UROLOGY NOTE. PT. WITH POST-TURP BLEEDING. PRESENTLY CROCKETT WITH CBI IS CLEAR, NO CLOTS, ABD.-SOFT,N/T, BS++ PLAN D/C CBI TODAY, OOB, ^ PO FLUIDS.
[2019-05-08] MEDS: ATORVASTATIN CA 40 MG TABLET (FP) PO SCH (21:52)
[2019-05-08] MEDS: DEXTROSE 5%-0.45% SALINE 1,000 ML IV SCH ×2 (21:57)
--- NOTE | 2019-05-08 22:30 | PN ---
Progress Note, Physician - Current Medication List Current Medications: Active Medications Atorvastatin Calcium (Lipitor -) 20 mg PO HS [facility] Last Admin: 05/08/19 21:52 Dose: 20 mg Dextrose/Sodium Chloride (D5-1/2ns -) 1,000 mls @ 75 mls/hr IV [facility] Last Admin: 05/08/19 21:57 Dose: 75 mls/hr Ceftriaxone Sodium 1 gm/ (Dextrose) 50 mls @ 100 mls/hr IVPB DAILY [facility]; Protocol Last Admin: 05/08/19 10:08 Dose: 100 mls/hr Losartan Potassium (Cozaar -) 25 mg PO DAILY [facility] Last Admin: 05/08/19 10:08 Dose: 25 mg Metoprolol Succinate (Toprol Xl -) 25 mg PO DAILY [facility] Last Admin: 05/08/19 10:08 Dose: 25 mg Tamsulosin HCl (Flomax -) 0.4 mg PO DAILY@0830 [facility] Last Admin: 05/08/19 10:08 Dose: 0.4 mg - Objective Vital Signs: Vital Signs Temperature 98.2 F 05/08/19 21:54 Pulse Rate 74 05/08/19 21:54 Respiratory Rate 20 05/08/19 21:54 Blood Pressure 136/70 05/08/19 21:54 O2 Sat by Pulse Oximetry (%) 100 05/07/19 21:00 Labs: CBC, BMP 05/08/19 08:33 05/08/19 08:33 INR, PTT INR 1.06 (0.83-1.09) 05/08/19 08:33
[2019-05-09] MEDS ORDERED: PT OWN MED DRAWER 7, Y5N ONE (07:02)
[2019-05-09] MEDS: TAMSULOSIN HCL 0.4 MG CAP PO SCH (08:17)
[2019-05-09 08:55] VITALS: BP 133/63; PULSE 80; TEMP 97.9
[2019-05-09] MEDS ORDERED: cefTRIAXone SODIUM 1 GM VIAL ONE (09:56)
[2019-05-09] MEDS ORDERED: DEXTROSE 5%-WATER - 50 ML IVPB ONE (09:56)
[2019-05-09] MEDS: LOSARTAN POTASSIUM 25 MG TABLET PO SCH (09:59)
[2019-05-09] MEDS: metoPROLOL SUCCINATE 25 MG TAB.SR.24H (FP) PO SCH (09:59)
[2019-05-09] MEDS: CEFTRIAXONE 1 GM in DEXTROSE 5%-WATER - 50 ML IVPB SCH (09:59)
--- NOTE | 2019-05-09 12:00 | PN ---
Progress Note (short form) - Note Progress Note: UROLOGY NOTE: Pt admitted post TURP clot retention. Mccarty with cbi for 48 hours cleared urine. CBI was D/C'ed yesterday. Presently abdomens oft, mccarty clear, no cva tenderness Plan: D/C mccarty cath. D/C home on analgesic medications. Medications prescribed. Urologically clear for discharge. Pt to follow up in office on Thursday, next week.
== END 2019-05-09 14:46 | disposition home or self-care (01) | DRG 921 ==
LOC: JER 00:50 → JERBED 03:51 → J6S 09:46
PROVIDERS: ADMIT Internal Medicine; ATTEND Internal Medicine
PROC: 3E1K88Z Irrigation of Genitourinary Tract using Irrigating Substance, Via Natural or Artificial Opening Endoscopic (ICD-10-PCS; principal; 2019-05-06)
DX: N99.820 Postprocedural hemorrhage of a genitourinary system organ or structure following a genitourinary system procedure (principal); R31.0 Gross hematuria; R33.8 Other retention of urine; I10 Essential (primary) hypertension; E78.5 Hyperlipidemia, unspecified; J44.9 Chronic obstructive pulmonary disease, unspecified; N48.89 Other specified disorders of penis; I25.10 Atherosclerotic heart disease of native coronary artery without angina pectoris; Z95.5 Presence of coronary angioplasty implant and graft; Z85.51 Personal history of malignant neoplasm of bladder
CPT/HCPCS: 36415; 76856-TC; 80048; 80053; 81003; 83735; 84100; 85025; 85027; 85610; 85730; 86850; 86900; 86901; 87086; 93005; 93010; 99285-25; J0131; J7030

== ENCOUNTER 2021-02-02 10:42 | Inpatient (IN) | payer BC ==
[2021-02-02] MEDS ORDERED: ACETAMINOPHEN 1000 MG/100 ML VIAL (NON FORMULARY) IVPB ONE (11:33)
[2021-02-02] MEDS ORDERED: FAMOTIDINE 20 MG/50 ML IVPB 20 MG/50 ML MG IVPB ONE ×2 (11:33→11:43)
[2021-02-02] MEDS ORDERED: ACETAMINOPHEN INJECTION 100 ML IVPB ONE (11:43)
[2021-02-02 12:23] LABS: BASO % 0.6 % (0-2.0); EOS % 2.1 % (0-4.5); HEMATOCRIT 36.8 % (35.4-49); HEMOGLOBIN 13.1 GM/dL (11.7-16.9); LYMPH % 25.6 % (8-40); MCH 30.2 pg (25.7-33.7); MCHC 35.6 g/dl (32.0-35.9); MEAN CELL VOLUME 84.7 fl (80-96); MEAN PLT VOLUME 8.3 fl (7.5-11.1); MONO % 15.1 % (3.8-10.2); NEUT % 56.6 % (42.8-82.8); PLATELET COUNT 205 10^3/uL (134-434); RBC 4.35 M/mm3 (4.00-5.60); RDW 13.2 % (11.9-15.9)
[2021-02-02 12:30] LABS: INR 1.13 (0.83-1.09); PROTHROMBIN TIME (PATIENT) 13.8 SEC (9.7-13.0)
[2021-02-02 12:33] LABS: ACTIVATED PTT 32.5 SECONDS (25.2-36.5)
[2021-02-02 12:35] LABS: CHLORIDE 105 mmol/L (98-107); SODIUM 137 mmol/L (136-145)
[2021-02-02 12:38] LABS: ALBUMIN 3.7 g/dl (3.4-5.0); ANION GAP 7 MMOL/L (8-16); BLOOD UREA NITROGEN 15.4 mg/dL (7-18); CALCIUM 8.9 mg/dL (8.5-10.1); CO2 25 mmol/L (21-32); GLUCOSE,RANDOM 87 mg/dL (74-106); MAGNESIUM 2.1 mg/dL (1.8-2.4)
[2021-02-02 12:41] LABS: CREATININE 1.1 mg/dL (0.55-1.3); SGOT/AST 17 U/L (15-37); SGPT/ALT 14 U/L (13-61)
[2021-02-02 12:43] LABS: BILIRUBIN,TOTAL 0.8 mg/dL (0.2-1); TOT PROT 7.5 g/dl (6.4-8.2)
[2021-02-02 12:44] LABS: ALK PHOS 117 U/L (45-117)
[2021-02-02 12:49] LABS: LIPASE 2190 U/L (73-393)
[2021-02-02] MEDS ORDERED: SODIUM CHLORIDE 0.9% 500 ML INFUS.BAG IV ONE (13:00)
[2021-02-02 13:19] LABS: CHOLESTEROL 150 mg/dL (50-200)
[2021-02-02 13:20] LABS: LDL CHOLESTEROL (ONLY SJRH) 75 mg/dL (5-100); TRIGLYCERIDES 63 mg/dL (0-150)
[2021-02-02 13:22] LABS: HDL CHOLESTEROL 57 mg/dL (40-60)
[2021-02-02] MEDS ORDERED: LACTULOSE 20 GM/30 ML UDC (FOR ORAL USE ONLY) PO ONE (13:47)
[2021-02-02] MEDS ORDERED: LACTULOSE 20 GM/30 ML UDC (FOR ORAL USE ONLY) ONE (14:04)
[2021-02-02] MEDS ORDERED: LOSARTAN POTASSIUM 50 MG TABLET PO ONE (20:13)
[2021-02-03 01:40] VITALS: BMI 27.0
[2021-02-03 01:50] VITALS: PULSE 83
[2021-02-03 05:54] VITALS: BP 154/79; TEMP 98.6
[2021-02-03] MEDS ORDERED: TAMSULOSIN HCL 0.4 MG CAP PO SCH (08:30)
[2021-02-03] MEDS ORDERED: FINASTERIDE 5 MG TABLET (FP) PO SCH (10:00)
[2021-02-03] MEDS ORDERED: metoPROLOL SUCCINATE 25 MG TAB.SR.24H (FP) PO SCH (10:00)
[2021-02-03] MEDS ORDERED: DOCUSATE SODIUM 100 MG CAPSULE (FP) PO SCH (10:00)
[2021-02-03] MEDS ORDERED: SENNOSIDES 8.6MG TABLET (FP) PO SCH (10:00)
[2021-02-03] MEDS ORDERED: POLYETHYLENE GLYCOL (HEALTHYLAX) 3350 17 GM PACKET PO SCH (10:00)
[2021-02-03] MEDS ORDERED: ASPIRIN COATED 81 MG TABLET.EC PO SCH (10:00)
[2021-02-03] MEDS ORDERED: LOSARTAN POTASSIUM 50 MG TABLET PO SCH (18:00)
[2021-02-03] MEDS ORDERED: ATORVASTATIN CA 10 MG TABLET (FP) PO SCH (22:00)
== END 2021-02-03 13:03 | disposition home or self-care (01) | DRG 391 ==
LOC: JER 10:42 → JERBED 13:34 → J7W 19:56
PROVIDERS: ADMIT Family Medicine Geriatric Medicine; ATTEND Family Medicine Geriatric Medicine
DX: K59.09 Other constipation (principal); K85.80 Other acute pancreatitis without necrosis or infection; I25.10 Atherosclerotic heart disease of native coronary artery without angina pectoris; E78.00 Pure hypercholesterolemia, unspecified; J44.9 Chronic obstructive pulmonary disease, unspecified; I10 Essential (primary) hypertension; F17.210 Nicotine dependence, cigarettes, uncomplicated; Z95.5 Presence of coronary angioplasty implant and graft
CPT/HCPCS: 36415; 71045-TC-FY; 74177-TC; 76705-TC; 80053; 80061; 82550; 83605; 83690; 83735; 84484; 85025; 85610; 85730; 93005; 93010; 99285-25; C9803; J0131; Q9967; U0003; U0005

== ENCOUNTER 2021-11-12 11:55 | Inpatient (IN) | payer BC ==
[2021-11-12 12:13] VITALS: BMI 29.0
[2021-11-12 13:30] LABS: HEMATOCRIT 33.7 % (35.4-49); HEMOGLOBIN 11.5 GM/dL (11.7-16.9); MCH 29.2 pg (25.7-33.7); MCHC 34.1 g/dl (32.0-35.9); MEAN CELL VOLUME 85.6 fl (80-96); MEAN PLT VOLUME 8.2 fl (7.5-11.1); PLATELET COUNT 260 10^3/uL (134-434); RBC 3.94 M/mm3 (4.00-5.60); RDW 13.9 % (11.9-15.9); WHITE BLOOD COUNT 9.9 K/mm3 (4.0-10.0)
[2021-11-12 14:02] LABS: ANISOCYTOSIS 0; HELMET CELLS 0; HOWELL-JOLLY BODIES 0; MACROCYTOSIS 0; OVALOCYTE 0; ROULEAU 0; SICKELED CELLS 0; TARGET CELLS 0; TEAR DROP CELLS 0; TOXIC GRANULATION 0
[2021-11-12 14:19] LABS: ALBUMIN 3.5 g/dl (3.4-5.0)
[2021-11-12 14:20] LABS: MAGNESIUM 2.1 mg/dL (1.8-2.4)
[2021-11-12 14:23] LABS: PHOSPHOROUS 4.5 mg/dL (2.5-4.9)
[2021-11-12 14:24] LABS: BILIRUBIN,TOTAL 0.5 mg/dL (0.2-1); TOT PROT 7.2 g/dl (6.4-8.2)
[2021-11-12] MEDS ORDERED: LOSARTAN POTASSIUM 50 MG TABLET PO SCH (22:00)
[2021-11-12] MEDS ORDERED: AZITHROMYCIN IVPB 500 MG/250 ML BAG IVPB ONE ×2 (22:00→22:03)
[2021-11-12] MEDS ORDERED: CLOPIDOGREL BISULFATE 75 MG TABLET (FP) PO SCH (22:00)
[2021-11-12] MEDS ORDERED: ATORVASTATIN CA 10 MG TABLET (FP) PO SCH (22:00)
[2021-11-12] MEDS ORDERED: metoPROLOL SUCCINATE 25 MG TAB.SR.24H (FP) PO SCH (22:00)
[2021-11-12] MEDS ORDERED: POLYETHYLENE GLYCOL (HEALTHYLAX) 3350 17 GM PACKET ONE (22:02)
[2021-11-12] MEDS ORDERED: LOSARTAN POTASSIUM 50 MG TABLET ONE (22:02)
[2021-11-12] MEDS ORDERED: ATORVASTATIN CA 80 MG TABLET (FP) ONE (22:02)
[2021-11-12] MEDS ORDERED: CEFTRIAXONE 1 GM/50 ML BAG ONE (22:03)
[2021-11-12] MEDS ORDERED: ASCORBIC ACID 500 MG TABLET (FP) ONE (22:03)
[2021-11-12] MEDS ORDERED: ASPIRIN 81 MG CHEWABLE TABLETS ONE (22:03)
[2021-11-12] MEDS ORDERED: ENOXAPARIN NA (PORCINE) 40 MG/0.4 ML DISP.SYRIN SQ ONE (22:06)
[2021-11-12] MEDS: ATORVASTATIN CA 80 MG TABLET (FP) PO SCH (22:30)
[2021-11-12] MEDS: POLYETHYLENE GLYCOL (HEALTHYLAX) 3350 17 GM PACKET PO SCH (22:30)
[2021-11-12] MEDS: ASPIRIN 81 MG CHEWABLE TABLETS PO SCH (22:30)
[2021-11-12] MEDS: DEXTROSE 5%-0.45% SALINE 1,000 ML IV SCH (22:30)
[2021-11-12] MEDS: LOSARTAN POTASSIUM 50 MG TABLET PO SCH (22:30)
[2021-11-12] MEDS: ENOXAPARIN NA (PORCINE) 40 MG/0.4 ML DISP.SYRIN SQ SCH (22:31)
[2021-11-12] MEDS: ASCORBIC ACID 500 MG TABLET (FP) PO SCH (22:31)
[2021-11-12] MEDS: CEFTRIAXONE 1 GM in DEXTROSE 5%-WATER - 50 ML IVPB SCH (22:31)
[2021-11-12] MEDS ORDERED: TAMSULOSIN HCL 0.4 MG CAP PO ONE (22:34)
[2021-11-12] MEDS ORDERED: TAMSULOSIN HCL 0.4 MG CAP ONE (22:35)
[2021-11-13 07:14] LABS: HEMATOCRIT 31.9 % (35.4-49); HEMOGLOBIN 10.8 GM/dL (11.7-16.9); MCH 28.8 pg (25.7-33.7); MEAN CELL VOLUME 84.8 fl (80-96); MEAN PLT VOLUME 8.4 fl (7.5-11.1); PLATELET COUNT 225 10^3/uL (134-434); RBC 3.76 M/mm3 (4.00-5.60); RDW 13.6 % (11.9-15.9); WHITE BLOOD COUNT 8.3 K/mm3 (4.0-10.0)
[2021-11-13 07:40] LABS: CHLORIDE 110 mmol/L (98-107); SODIUM 142 mmol/L (136-145)
[2021-11-13 07:43] LABS: ALBUMIN 3.1 g/dl (3.4-5.0)
[2021-11-13 07:46] LABS: SGOT/AST 16 U/L (15-37); SGPT/ALT 33 U/L (13-61)
[2021-11-13 07:50] LABS: BILIRUBIN,TOTAL 0.5 mg/dL (0.2-1); CALCIUM 8.2 mg/dL (8.5-10.1)
[2021-11-13 07:51] LABS: ALK PHOS 88 U/L (45-117); ANION GAP 7 MMOL/L (8-16); BLOOD UREA NITROGEN 44.3 mg/dL (7-18); CO2 26 mmol/L (21-32); CREATININE 1.4 mg/dL (0.55-1.3); GLUCOSE,RANDOM 95 mg/dL (74-106)
[2021-11-13 07:56] LABS: TOT PROT 6.3 g/dl (6.4-8.2)
[2021-11-13] MEDS ORDERED: ZINC SULFATE 220 MG CAPSULE (FP) ONE (08:49)
[2021-11-13] MEDS ORDERED: PANTOPRAZOLE 40 MG TABLET PO ONE (08:49)
[2021-11-13] MEDS ORDERED: POLYETHYLENE GLYCOL (HEALTHYLAX) 3350 17 GM PACKET ONE (08:49)
[2021-11-13] MEDS ORDERED: TAMSULOSIN HCL 0.4 MG CAP ONE (08:50)
[2021-11-13] MEDS ORDERED: ASCORBIC ACID 500 MG TABLET (FP) ONE (08:50)
[2021-11-13] MEDS ORDERED: CHOLECALCIFEROL (VIT D3) 1,000 UNIT (25 MCG) TABLET ONE (08:50)
[2021-11-13] MEDS ORDERED: ENOXAPARIN NA (PORCINE) 40 MG/0.4 ML DISP.SYRIN SQ ONE (08:50)
[2021-11-13] MEDS ORDERED: CEFTRIAXONE 1 GM/50 ML BAG ONE (08:50)
[2021-11-13] MEDS ORDERED: CLOPIDOGREL BISULFATE 75 MG TABLET (FP) ONE (08:50)
[2021-11-13] MEDS ORDERED: LOSARTAN POTASSIUM 50 MG TABLET ONE (08:50)
[2021-11-13 08:58] LABS: ANISOCYTOSIS 1+; MACROCYTOSIS 1+; OVALOCYTE 0
[2021-11-13] MEDS: LOSARTAN POTASSIUM 50 MG TABLET PO SCH (10:24)
[2021-11-13] MEDS: POLYETHYLENE GLYCOL (HEALTHYLAX) 3350 17 GM PACKET PO SCH ×2 (10:24→22:01)
[2021-11-13] MEDS: ENOXAPARIN NA (PORCINE) 40 MG/0.4 ML DISP.SYRIN SQ SCH (10:24)
[2021-11-13] MEDS: CLOPIDOGREL BISULFATE 75 MG TABLET (FP) PO SCH (10:25)
[2021-11-13] MEDS: TAMSULOSIN HCL 0.4 MG CAP PO SCH (10:25)
[2021-11-13] MEDS: ASCORBIC ACID 500 MG TABLET (FP) PO SCH ×2 (10:25→22:01)
[2021-11-13] MEDS: CEFTRIAXONE 1 GM in DEXTROSE 5%-WATER - 50 ML IVPB SCH (10:25)
[2021-11-13] MEDS: CHOLECALCIFEROL (VIT D3) 1,000 UNIT (25 MCG) TABLET PO SCH (10:25)
[2021-11-13] MEDS: PANTOPRAZOLE 40 MG TABLET PO SCH (10:25)
[2021-11-13] MEDS: ZINC SULFATE 220 MG CAPSULE (FP) PO SCH (10:25)
[2021-11-13] MEDS ORDERED: REMDESIVIR 200 MG in SODIUM CHLORIDE 250 ML IVPB ONE (15:00)
[2021-11-13] MEDS: ASPIRIN 81 MG CHEWABLE TABLETS PO SCH (22:01)
[2021-11-13] MEDS: ATORVASTATIN CA 80 MG TABLET (FP) PO SCH (22:01)
[2021-11-13] MEDS: DEXTROSE 5%-0.45% SALINE 1,000 ML IV SCH (22:01)
[2021-11-14 09:22] LABS: HEMATOCRIT 34.3 % (35.4-49); HEMOGLOBIN 11.7 GM/dL (11.7-16.9); MCH 29.3 pg (25.7-33.7); MCHC 34.2 g/dl (32.0-35.9); MEAN CELL VOLUME 85.8 fl (80-96); MEAN PLT VOLUME 8.3 fl (7.5-11.1); PLATELET COUNT 260 10^3/uL (134-434); RDW 13.9 % (11.9-15.9); WHITE BLOOD COUNT 9.9 K/mm3 (4.0-10.0)
[2021-11-14] MEDS ORDERED: DEXTROSE 5%-WATER - 50 ML IVPB ONE (09:56)
[2021-11-14] MEDS ORDERED: cefTRIAXone SODIUM 1 GM VIAL ONE (09:56)
[2021-11-14 09:57] LABS: ALBUMIN 3.2 g/dl (3.4-5.0); CALCIUM 8.3 mg/dL (8.5-10.1)
[2021-11-14 09:58] LABS: BLOOD UREA NITROGEN 35.7 mg/dL (7-18)
[2021-11-14 09:59] LABS: CREATININE 1.2 mg/dL (0.55-1.3)
[2021-11-14 10:01] LABS: BILIRUBIN,TOTAL 0.8 mg/dL (0.2-1); TOT PROT 6.5 g/dl (6.4-8.2)
[2021-11-14] MEDS: ASCORBIC ACID 500 MG TABLET (FP) PO SCH ×2 (10:26→22:20)
[2021-11-14] MEDS: PANTOPRAZOLE 40 MG TABLET PO SCH (10:26)
[2021-11-14] MEDS: LOSARTAN POTASSIUM 50 MG TABLET PO SCH (10:26)
[2021-11-14] MEDS: CLOPIDOGREL BISULFATE 75 MG TABLET (FP) PO SCH (10:27)
[2021-11-14] MEDS: CHOLECALCIFEROL (VIT D3) 1,000 UNIT (25 MCG) TABLET PO SCH (10:27)
[2021-11-14] MEDS: POLYETHYLENE GLYCOL (HEALTHYLAX) 3350 17 GM PACKET PO SCH ×2 (10:27→22:22)
[2021-11-14] MEDS: CEFTRIAXONE 1 GM in DEXTROSE 5%-WATER - 50 ML IVPB SCH (10:27)
[2021-11-14] MEDS: TAMSULOSIN HCL 0.4 MG CAP PO SCH (10:27)
[2021-11-14] MEDS: ZINC SULFATE 220 MG CAPSULE (FP) PO SCH (10:27)
[2021-11-14] MEDS: ENOXAPARIN NA (PORCINE) 40 MG/0.4 ML DISP.SYRIN SQ SCH (10:27)
[2021-11-14] MEDS: DEXTROSE 5%-0.45% SALINE 1,000 ML IV SCH ×2 (10:40→22:21)
[2021-11-14] MEDS: REMDESIVIR 100 MG in SODIUM CHLORIDE 250 ML IVPB SCH (14:45)
[2021-11-14] MEDS: ATORVASTATIN CA 80 MG TABLET (FP) PO SCH (22:20)
[2021-11-14] MEDS: ASPIRIN 81 MG CHEWABLE TABLETS PO SCH (22:22)
[2021-11-15 06:33] LABS: PH,URINE 5.5 (5.0-8.0); URINE APPEARANCE CLEAR; URINE BILIRUBIN NEGATIVE (NEGATIVE); URINE COLOR YELLOW; URINE GLUCOSE (UA) NEGATIVE (NEGATIVE); URINE KETONE NEGATIVE (NEGATIVE); URINE LEUK ESTERASE NEGATIVE (NEGATIVE); URINE NITRITE NEGATIVE (NEGATIVE); URINE PROTEIN NEGATIVE (NEGATIVE); URINE UROBILINOGEN 0.2 mg/dL (0.2-1.0)
[2021-11-15] MEDS ORDERED: cefTRIAXone SODIUM 1 GM VIAL ONE (10:43)
[2021-11-15] MEDS ORDERED: DEXTROSE 5%-WATER - 50 ML IVPB ONE (10:43)
[2021-11-15] MEDS: ENOXAPARIN NA (PORCINE) 40 MG/0.4 ML DISP.SYRIN SQ SCH (11:24)
[2021-11-15] MEDS: LOSARTAN POTASSIUM 50 MG TABLET PO SCH (11:24)
[2021-11-15] MEDS: CEFTRIAXONE 1 GM in DEXTROSE 5%-WATER - 50 ML IVPB SCH (11:24)
[2021-11-15] MEDS: CLOPIDOGREL BISULFATE 75 MG TABLET (FP) PO SCH (11:24)
[2021-11-15] MEDS: ASCORBIC ACID 500 MG TABLET (FP) PO SCH (11:25)
[2021-11-15] MEDS: PANTOPRAZOLE 40 MG TABLET PO SCH (11:25)
[2021-11-15] MEDS: CHOLECALCIFEROL (VIT D3) 1,000 UNIT (25 MCG) TABLET PO SCH (11:25)
[2021-11-15] MEDS: TAMSULOSIN HCL 0.4 MG CAP PO SCH (11:25)
[2021-11-15] MEDS: POLYETHYLENE GLYCOL (HEALTHYLAX) 3350 17 GM PACKET PO SCH (11:26)
[2021-11-15] MEDS: ZINC SULFATE 220 MG CAPSULE (FP) PO SCH (11:26)
[2021-11-15 14:28] VITALS: BP 115/58; PULSE 85; TEMP 98.2
[2021-11-15] MEDS: REMDESIVIR 100 MG in SODIUM CHLORIDE 250 ML IVPB SCH (15:07)
== END 2021-11-15 18:23 | disposition home or self-care (01) | DRG 178 ==
LOC: JER 11:55 → JERBED 18:43 → OBSVTOIN 21:48 → J4S 11-13 15:35
PROVIDERS: ADMIT Internal Medicine; ATTEND Internal Medicine
PROC: XW033E5 Introduction of Remdesivir Anti-infective into Peripheral Vein, Percutaneous Approach, New Technology Group 5 (ICD-10-PCS; principal; 2021-11-13)
DX: U07.1 COVID-19 (principal); N17.9 Acute kidney failure, unspecified; J44.9 Chronic obstructive pulmonary disease, unspecified; I25.10 Atherosclerotic heart disease of native coronary artery without angina pectoris; R55 Syncope and collapse; E78.5 Hyperlipidemia, unspecified; F17.210 Nicotine dependence, cigarettes, uncomplicated; I12.9 Hypertensive chronic kidney disease with stage 1 through stage 4 chronic kidney disease, or unspecified chronic kidney disease; R07.89 Other chest pain; N18.9 Chronic kidney disease, unspecified; N28.1 Cyst of kidney, acquired; N20.0 Calculus of kidney; I73.9 Peripheral vascular disease, unspecified; Z95.5 Presence of coronary angioplasty implant and graft; Z85.51 Personal history of malignant neoplasm of bladder
CPT/HCPCS: 36415; 71045-TC-FY; 76775-TC; 80053; 81003; 82728; 83735; 84100; 84484; 85025; 85379; 86140; 93005; 93010; 99285-25; C9399; C9803-CS; G0378; U0003; U0005